=== PATIENT | male | born 1945 | race Caucasian/White ===

== ENCOUNTER → 2017-03-02 07:57 | Outpatient (POV) | payer MEDICARE, OTHER, SELFPAY ==
[2017-03-02] VITALS (19 sets, daily range): BP systolic 128–173; BP diastolic 60–82; PULSE 50–68; RESP 18–20; TEMP 36.1–36.8; O2SAT 97–98; BMI 30.2
[2017-03-02 09:56] LABS: Basophils % 0.6 % (0.1-2.0); Eosinophils # 0.1 K/mm3 (0.0-0.4); Eosinophils % 1.1 % (0.1-12.0); Hematocrit 26.7 % (42.0-52.0); Lymphocytes # 1.1 K/mm3 (0.7-4.5); Mean Corpuscular HGB Conc 27.8 g/dL (31.8-35.4); Mean Corpuscular Hemoglobin 19.8 pg (27.0-31.2); Mean Corpuscular Volume 71.2 fl (80-94); Mean Platelet Volume 8.5 fl (7.4-10.4); Monocytes # 0.4 K/mm3 (0.1-1.0); Monocytes % 5.8 % (1.7-9.3); Neutrophils # 5.1 K/mm3 (1.8-7.8); Neutrophils % 76.5 % (37.0-80.0); Platelet Count 203 K/mm3 (142-424); Red Blood Count 3.76 M/mm3 (4.60-6.20); White Blood Count 6.6 K/mm3 (4.8-10.8)
[2017-03-02 10:12] LABS: Hemoglobin 7.4 g/dL (14.1-18.0)
[2017-03-02 11:06] LABS: Alanine Aminotransferase 12 U/L (12-78); Albumin Level 3.6 gm/dL (3.4-5.0); Albumin/Globulin Ratio 1.4 (1.1-1.8); Alkaline Phosphatase 86 U/L (46-116); Anion Gap 13.4 mEq/L (5-15); Aspartate Amino Transferase 16 U/L (15-37); Bilirubin,Total 0.4 mg/dL (0.2-1.0); Blood Urea Nitrogen 19 mg/dL (7-18); Calcium 8.5 mg/dL (8.5-10.1); Carbon Dioxide 25 mmol/L (21.0-32.0); Chloride 107 mmol/L (98-107); Creatinine,Serum 1.17 mg/dL (0.70-1.30); Estimated Glomerular Filt Rate 62 ml/min (>60); Ferritin 5 ng/mL (8-388); GFR (African American) 75 ML/MIN (>60); Globulin 2.6 gm/dl (1.3-3.2); Glucose 97 mg/dL (74-106); Potassium 4.4 mmoL/L (3.5-5.1); Sodium 141 mmol/L (136-145); Total Protein,Serum 6.2 gm/dL (6.4-8.2)
--- NOTE | 2017-03-02 18:17 | PC.NURSE ---
WATCHING PATIENT FOR ONE HOUR FOR 1 HOUR POST H&H AND VITAL SIGNS, BLOOD PRESSURE ELEVATED AT 173/82, PATIENT STATES HE HAS NOT HAD HIS BLOOD PRESSURE MEDS TODAY. WILL CONTINUE TO MONITOR.
[2017-03-02 18:18] LABS: Hematocrit 30.5 % (42.0-52.0)
[2017-03-02 18:44] LABS: Hemoglobin 8.9 g/dL (14.1-18.0)
[2017-03-03 09:22] LABS: Iron 13 ug/dL (38-169); Iron Saturation 4 % (15-55); UIBC 353 ug/dL (111-343)
[2017-03-03 13:38] LABS: Vitamin B12 427 pg/mL (232-1245)
[2017-03-06 18:22] LABS: H. pylori Breath Test Negative (Negative)
== END ==
LOC: SC 10:52 → INF 12:58
PROVIDERS: Visit Provider Nurse Practitioner Acute Care
DX: D64.9 Anemia, unspecified (principal); R06.02 Shortness of breath
CPT/HCPCS: 36415; 36430; 80053; 82607; 82728; 83550; 85014; 85018; 85025; 86850; P9016

== ENCOUNTER → 2017-03-04 08:00 | Outpatient (CLI) | payer MEDICARE, OTHER, SELFPAY ==
[2017-03-09 13:42] LABS: Occult Blood,Stool Positive (Negative)
== END ==
PROVIDERS: Visit Provider Nurse Practitioner Acute Care
DX: D50.0 Iron deficiency anemia secondary to blood loss (chronic) (principal)
CPT/HCPCS: 82272; G0328

== ENCOUNTER → 2017-03-05 15:36 | Outpatient (CLI) | payer MEDICARE, OTHER, SELFPAY ==
[2017-03-09 13:42] LABS: Occult Blood,Stool Positive (Negative)
== END ==
PROVIDERS: Visit Provider Nurse Practitioner Acute Care
DX: D50.0 Iron deficiency anemia secondary to blood loss (chronic) (principal)
CPT/HCPCS: 82272; G0328

== ENCOUNTER → 2017-03-06 15:30 | Outpatient (CLI) | payer MEDICARE, OTHER, SELFPAY ==
[2017-03-09 13:41] LABS: Occult Blood,Stool Positive (Negative)
== END ==
PROVIDERS: Family Provider Internal Medicine Adolescent Medicine; Visit Provider Nurse Practitioner Acute Care
DX: D50.0 Iron deficiency anemia secondary to blood loss (chronic) (principal)
CPT/HCPCS: 82272; G0328

== ENCOUNTER → 2017-03-16 09:17 | Outpatient (POV) | payer OTHER, MEDICARE, SELFPAY | PROVIDERS: Visit Provider Nurse Practitioner Acute Care | DX: Z00.00 Encounter for general adult medical examination without abnormal findings (principal) ==

== ENCOUNTER → 2017-04-03 15:17 | Outpatient (CLI) | payer MEDICARE, OTHER, SELFPAY ==
[2017-04-03 15:32] LABS: Basophils # 0.1 K/mm3 (0-0.2); Basophils % 0.7 % (0.1-2.0); Eosinophils # 0.1 K/mm3 (0.0-0.4); Eosinophils % 1.7 % (0.1-12.0); Hematocrit 29.5 % (42.0-52.0); Hemoglobin 8.1 g/dL (14.1-18.0); Lymphocytes # 1.8 K/mm3 (0.7-4.5); Lymphocytes % 22.7 K/mm3 (10-50); Mean Corpuscular HGB Conc 27.4 g/dL (31.8-35.4); Mean Corpuscular Hemoglobin 19.3 pg (27.0-31.2); Mean Corpuscular Volume 70.4 fl (80-94); Mean Platelet Volume 8.7 fl (7.4-10.4); Monocytes # 0.5 K/mm3 (0.1-1.0); Monocytes % 6.7 % (1.7-9.3); Neutrophils # 5.4 K/mm3 (1.8-7.8); Neutrophils % 68.1 % (37.0-80.0); Platelet Count 281 K/mm3 (142-424); White Blood Count 7.9 K/mm3 (4.8-10.8)
[2017-04-03 18:26] LABS: Anion Gap 13.8 mEq/L (5-15); Blood Urea Nitrogen 19 mg/dL (7-18); Carbon Dioxide 26 mmol/L (21.0-32.0); Chloride 106 mmol/L (98-107); Creatinine,Serum 1.24 mg/dL (0.70-1.30); Estimated Glomerular Filt Rate 58 ml/min (>60); GFR (African American) 70 ML/MIN (>60); Glucose 96 mg/dL (74-106); Potassium 4.8 mmoL/L (3.5-5.1); Sodium 141 mmol/L (136-145)
== END ==
PROVIDERS: PCP Internal Medicine Adolescent Medicine; Visit Provider Internal Medicine Adolescent Medicine
DX: D50.0 Iron deficiency anemia secondary to blood loss (chronic) (principal)
CPT/HCPCS: 36415; 80048; 85025

== ENCOUNTER → 2017-04-20 11:14 | Outpatient (CLI) | payer MEDICARE, OTHER, SELFPAY ==
[2017-04-20] VITALS (20 sets, daily range): BP systolic 99–140; BP diastolic 50–77; PULSE 48–99; RESP 16–20; TEMP 36.4–36.8; O2SAT 51–100; BMI 29.7
[2017-04-20 11:39] LABS: Basophils % 0.5 % (0.1-2.0); Eosinophils # 0.1 K/mm3 (0.0-0.4); Eosinophils % 1.5 % (0.1-12.0); Hematocrit 27.3 % (42.0-52.0); Lymphocytes # 1.6 K/mm3 (0.7-4.5); Lymphocytes % 21.1 K/mm3 (10-50); Mean Corpuscular HGB Conc 26.7 g/dL (31.8-35.4); Mean Corpuscular Hemoglobin 18.8 pg (27.0-31.2); Mean Corpuscular Volume 70.3 fl (80-94); Mean Platelet Volume 8.8 fl (7.4-10.4); Monocytes # 0.6 K/mm3 (0.1-1.0); Monocytes % 7.6 % (1.7-9.3); Neutrophils # 5.1 K/mm3 (1.8-7.8); Neutrophils % 69.2 % (37.0-80.0); Platelet Count 228 K/mm3 (142-424); Red Blood Count 3.88 M/mm3 (4.60-6.20); Red Cell Distribution Width 18.6 % (11.5-17.5); White Blood Count 7.4 K/mm3 (4.8-10.8)
[2017-04-20 11:41] LABS: Hemoglobin 7.3 g/dL (14.1-18.0)
[2017-04-20 11:42] LABS: INR 1.37 (0.9-1.1); Prothrombin Time 14.9 seconds (9.4-11.8)
[2017-04-20 11:57] LABS: Prostate Specific Ag Screen 16.9 ng/mL (0.0-4.0); Thyroid Stimulating Hormone 5.95 uIU/ml (0.358-3.740); Uric Acid 11.7 mg/dL (2.6-7.2)
[2017-04-20 12:47] LABS: Erythrocyte Sedimentation Rate 18 mm/hr (0-20)
--- NOTE | 2017-04-20 17:06 | PC.NURSE ---
REPORT CALLED TO SECOND FLOOR, GAYATRI GALLAGHER ASSUMING CARE. PT TRANSFERRED TO 2ND FLOOR, RM 217 TO FINISH BLOOD TRANSFUSION PER WC. PT SETTLED IN ROOM WITH AT BS. PT DENIED NEEDING ANYTHING FOR DINNER.
[2017-04-20 19:39] LABS: Hematocrit 28.9 % (42.0-52.0)
[2017-04-20 20:06] LABS: Hemoglobin 8.2 g/dL (14.1-18.0)
== END ==
PROVIDERS: PCP Internal Medicine Adolescent Medicine; Visit Provider Internal Medicine Adolescent Medicine
DX: D50.0 Iron deficiency anemia secondary to blood loss (chronic) (principal); R97.20 Elevated prostate specific antigen [PSA]; I35.9 Nonrheumatic aortic valve disorder, unspecified; M10.9 Gout, unspecified; I25.10 Atherosclerotic heart disease of native coronary artery without angina pectoris; R53.83 Other fatigue; Z12.5 Encounter for screening for malignant neoplasm of prostate
CPT/HCPCS: 36415; 36430; 84443; 84550; 85014; 85018; 85025; 85610; 85651; 86850; G0103; P9016

== ENCOUNTER → 2017-05-25 14:21 | Outpatient (CLI) | payer MEDICARE, OTHER, SELFPAY ==
[2017-05-25 14:35] LABS: Basophils # 0.1 K/mm3 (0-0.2); Basophils % 0.8 % (0.1-2.0); Eosinophils # 0.2 K/mm3 (0.0-0.4); Eosinophils % 2.3 % (0.1-12.0); Hematocrit 41.1 % (42.0-52.0); Hemoglobin 11.3 g/dL (14.1-18.0); Lymphocytes # 2.1 K/mm3 (0.7-4.5); Lymphocytes % 27.9 K/mm3 (10-50); Mean Corpuscular HGB Conc 27.6 g/dL (31.8-35.4); Mean Corpuscular Volume 79.6 fl (80-94); Mean Platelet Volume 7.7 fl (7.4-10.4); Monocytes # 0.5 K/mm3 (0.1-1.0); Monocytes % 6.8 % (1.7-9.3); Neutrophils # 4.6 K/mm3 (1.8-7.8); Neutrophils % 62.3 % (37.0-80.0); Platelet Count 267 K/mm3 (142-424); Red Blood Count 5.16 M/mm3 (4.60-6.20); Red Cell Distribution Width 21.2 % (11.5-17.5); White Blood Count 7.4 K/mm3 (4.8-10.8)
[2017-05-25 15:48] LABS: Alanine Aminotransferase 17 U/L (12-78); Albumin Level 3.5 gm/dL (3.4-5.0); Albumin/Globulin Ratio 1.2 (1.1-1.8); Alkaline Phosphatase 99 U/L (46-116); Anion Gap 14.1 mEq/L (5-15); Aspartate Amino Transferase 20 U/L (15-37); Bilirubin,Total 0.3 mg/dL (0.2-1.0); Blood Urea Nitrogen 15 mg/dL (7-18); Calcium 8.9 mg/dL (8.5-10.1); Carbon Dioxide 26 mmol/L (21.0-32.0); Chloride 106 mmol/L (98-107); Creatinine,Serum 1.11 mg/dL (0.70-1.30); Estimated Glomerular Filt Rate 65 ml/min (>60); GFR (African American) 79 ML/MIN (>60); Globulin 2.9 gm/dl (1.3-3.2); Glucose 109 mg/dL (74-106); Potassium 4.1 mmoL/L (3.5-5.1); Sodium 142 mmol/L (136-145); Total Protein,Serum 6.4 gm/dL (6.4-8.2); Uric Acid 9.2 mg/dL (2.6-7.2)
== END ==
PROVIDERS: Visit Provider Internal Medicine Adolescent Medicine
DX: I35.9 Nonrheumatic aortic valve disorder, unspecified (principal); M10.9 Gout, unspecified
CPT/HCPCS: 36415; 80053; 84550; 85025

== ENCOUNTER → 2017-07-27 09:40 | Outpatient (CLI) | payer MEDICARE, OTHER, SELFPAY ==
[2017-07-27 10:12] LABS: Basophils % 0.7 % (0.1-2.0); Eosinophils # 0.1 K/mm3 (0.0-0.4); Eosinophils % 1.9 % (0.1-12.0); Hematocrit 45.5 % (42.0-52.0); Hemoglobin 13.2 g/dL (14.1-18.0); Lymphocytes # 1.4 K/mm3 (0.7-4.5); Lymphocytes % 24.1 K/mm3 (10-50); Mean Corpuscular HGB Conc 29.1 g/dL (31.8-35.4); Mean Corpuscular Hemoglobin 24.5 pg (27.0-31.2); Mean Corpuscular Volume 84.2 fl (80-94); Mean Platelet Volume 7.6 fl (7.4-10.4); Monocytes # 0.4 K/mm3 (0.1-1.0); Monocytes % 6.3 % (1.7-9.3); Neutrophils # 3.9 K/mm3 (1.8-7.8); Neutrophils % 67.1 % (37.0-80.0); Platelet Count 203 K/mm3 (142-424); Red Blood Count 5.41 M/mm3 (4.60-6.20); Red Cell Distribution Width 17.3 % (11.5-17.5); White Blood Count 5.9 K/mm3 (4.8-10.8)
[2017-07-27 10:16] LABS: INR 2.97 (0.9-1.1); Prothrombin Time 29.6 seconds (9.4-11.8)
[2017-07-27 12:59] LABS: Alanine Aminotransferase 21 U/L (12-78); Albumin Level 3.3 gm/dL (3.4-5.0); Albumin/Globulin Ratio 1.2 (1.1-1.8); Alkaline Phosphatase 129 U/L (46-116); Anion Gap 15.9 mEq/L (5-15); Aspartate Amino Transferase 20 U/L (15-37); Bilirubin,Total 0.3 mg/dL (0.2-1.0); Blood Urea Nitrogen 15 mg/dL (7-18); Calcium 9.3 mg/dL (8.5-10.1); Carbon Dioxide 26 mmol/L (21.0-32.0); Chloride 103 mmol/L (98-107); Chol/HDL Ratio 4.9 (1-3.5); Cholesterol 190 mg/dL (140-200); Creatinine,Serum 1.02 mg/dL (0.70-1.30); Estimated Glomerular Filt Rate 72 ml/min (>60); GFR (African American) 87 ML/MIN (>60); Globulin 2.8 gm/dl (1.3-3.2); Glucose 134 mg/dL (74-106); HDL Cholesterol 39 mg/dL (27-67); LDL Cholesterol 115 mg/dL (0-130); Potassium 4.9 mmoL/L (3.5-5.1); Sodium 140 mmol/L (136-145); Total Protein,Serum 6.1 gm/dL (6.4-8.2); Triglycerides 178 mg/dL (30-200); Uric Acid 4.3 mg/dL (2.6-7.2); VLDL Cholesterol 36 mg/dL (0-40)
== END ==
PROVIDERS: Visit Provider Internal Medicine Adolescent Medicine
DX: I25.10 Atherosclerotic heart disease of native coronary artery without angina pectoris (principal); M10.9 Gout, unspecified; D50.0 Iron deficiency anemia secondary to blood loss (chronic); I35.9 Nonrheumatic aortic valve disorder, unspecified
CPT/HCPCS: 36415; 80053; 80061; 84550; 85025; 85610

== ENCOUNTER 2017-08-22 16:02 | Inpatient (IN) ==
--- NOTE | 2017-08-22 16:26 | Emergency Department Note ---
ED Disposition Clinical Impression: GI bleeding, Anticoagulated on Coumadin, Metallic aortic valve replacement during current hospitalization Disposition: Still a Patient Condition on Discharge: Fair Instructions: DI for Gastrointestinal Bleeding - Critical Care Critical Care Time: No Attestation: On , the high probability of a clinically significant, sudden or life threatening deterioration of the following system(s) required my full and direct attention, intervention and personal management. The time I documented below is in addition to time spent performing reported procedures but includes the following listed in this critical care notation. Medical Decision Making - Gio Inquiry Pt receiving controlled substance: No Gio was queried for this patient: No Vital Signs: 08/22/17 16:08 08/22/17 17:03 Temperature 97.9 F Temperature Source Oral Pulse Rate [Right Radial] 79 Respiratory Rate 20 Blood Pressure [Right Arm] 180/97 138/76 Blood Pressure Mean [Right Arm] 124 96 Blood Pressure Source [Right Arm] Automatic Cuff Manual Cuff/ Auscultation Blood Pressure Position [Right Arm] Sitting Sitting 02 Sat by Pulse Oximetry 98 Oxygen Delivery Method Room Air - Lab Data Lab Results 08/22/17 16:30: Stool Occult Blood Positive A 08/22/17 16:30: WBC 9.2, RBC 4.44 L, Hgb 11.4 L, Hct 37.9 L, MCV 85.4, MCH 25.6 L, MCHC 30.0 L, RDW 17.2, Plt Count 254, MPV 7.4, Neut % (Auto) 85.7 H, Lymph % (Auto) 10.2, [place] % (Auto) 3.6, Eos % (Auto) 0.2, Baso % (Auto) 0.3, Neut # ( Auto) 7.9 H, Lymph # (Auto) 0.9, [place] # (Auto) 0.3, Eos # (Auto) 0.0, Baso # ( Auto) 0.0 08/22/17 16:30: PT 24.8 H, INR 2.47 H, APTT 42.2 H 08/22/17 16:30: Sodium 141, Potassium 4.2, Chloride 109 H, Carbon Dioxide 26, Anion Gap 10.2, BUN 19 H, Creatinine 1.08, Estimated Creat Clear 76, Estimated GFR 68, Est GFR ( Amer) 82, Glucose 141 H, Calcium 9.1, Total Bilirubin 0.4, AST 15, ALT 19, Alkaline Phosphatase 129 H, Total Protein 7.1, Albumin 3.4 , Globulin 3.7 H, Albumin/Globulin Ratio 0.9 L 08/22/17 16:41: Blood Type A Positive Result diagrams: 08/22/17 16:30 08/22/17 16:30 Orders (Tests/Meds): ED MEDICATIONS Generic Name Dose Route Start Last Admin Trade Name Freq PRN Reason Stop Dose Admin Sodium Chloride 1,000 mls @ 999 mls/hr 08/22/17 16:30 08/22/17 16:47 Sod Chlor 0.9% 1000ml Bag IV 08/22/17 17:30 999 mls/hr .Q1H1M CHEN Administration Pantoprazole Sodium 80 mg/ 100 mls @ 10 mls/hr 08/22/17 16:30 08/22/17 16:54 Sodium Chloride IV 08/25/17 16:29 10 mls/hr .Q10H CHEN Administration Discontinued Medications Generic Name Dose Route Start Last Admin Trade Name Freq PRN Reason Stop Dose Admin Famotidine 20 mg 08/22/17 16:29 08/22/17 16:47 Pepcid 20mg/2ml Vial IV 08/22/17 16:30 20 mg ONCE ONE Administration Ondansetron HCl 4 mg 08/22/17 16:34 08/22/17 16:42 Zofran 4mg/2ml Vial IV 08/22/17 16:35 4 mg ONCE ONE Administration Pantoprazole Sodium 40 mg 08/22/17 16:29 08/22/17 16:47 Protonix 40mg Vial IV 08/22/17 16:30 40 mg ONCE ONE Administration Sodium Chloride 8 ml 08/22/17 16:29 08/22/17 16:47 Saline Flush 10ml Syringe IV 08/22/17 16:30 8 ml ONCE ONE Administration ORDERS Category Date Time Status Type and Screen Stat BBK 08/22/17 16:41 Results Complete Blood Count Auto Diff Stat Lab 08/22/17 16:30 Results Medical Decision Narrative: The patient was orthostatic negative his hemoglobin was 11 he wanted to be admitted at [facility] on the Dr. Henderson service. [address] Henderson he did not answer so I spoke with Dr. Landa was experimental electronics developer for Dr. Henderson and he accepted admission on behalf of Dr. Covarrubias. Patient is a positive in the blood bank has his blood type. GI Bleed HPI - General Chief complaint: GI Bleed Stated complaint: vomiting blood,blood in stools Time Seen by Provider: 08/22/17 16:10 Mode of Arrival: Ambulatory Limitations: No Limitations Description of Symptoms (Recalled from ER Triage Doc. by RN): Patient endorsing abdominal pain since yesterday evening and vomiting "something red, either a slim nicol or blood." Patient also states he had several bowel movements with dark blood. - History of Present Illness HPI Narrative: 9 years old white male with multiple medical problems including coronary artery disease aortic valve replacement 2001 on Coumadin therapy his most recent INR was three-point. The patient has a past medical history of peptic ulcer disease and GI bleeding that required blood transfusion. Today while working he developed abdominal discomfort had to lie down vomited blood 3 and the last episode was coffee-ground emesis. He had abnormal bowel movement since yesterday. He denies lightheaded dizziness but he feels nauseous and weak. Onset (ago): hour(s) (Started of 8 hours ago) Consistency: intermittent Severity: moderate Relieving factors: none Exacerbating factors: none Context: history of GI bleed, anticoagulant use Associated symptoms: nausea, malaise Treatments Prior to Arrival: none - Related Data Home Medications Medication Instructions Recorded Confirmed allopurinol 300 mg tablet 300 mg PO .QDAY tab 03/12/17 08/22/17 aspirin 81 mg tablet,delayed 81 mg PO .QDAY tab 03/12/17 08/22/17 release colchicine 0.6 mg capsule 0.6 mg PO .QDAY PRN cap 03/12/17 08/22/17 hydrocodone 7.5 mg-acetaminophen 1 tab PO Q6H 03/12/17 08/22/17 325 mg tablet lisinopril 20 mg tablet 20 mg PO .QDAY tab 03/12/17 08/22/17 omeprazole 20 mg capsule,delayed 20 mg PO DAILY 03/12/17 08/22/17 release warfarin 5 mg tablet 5 mg PO DAILY 03/12/17 08/22/17 Allergies Allergy/AdvReac Type Severity Reaction Status Date / Time No Known Allergies Allergy Verified 08/22/17 16:21 [facility] History I have reviewed the patient's past medical history: Yes (Complex PMH, I reviewed his medication) Medical History: Reports:: Hyperlipidemia, Hypertension, Ulcer Other Medical History: Reports: Anemia, Arthritis, Other Laterality Cases: Bilateral: Arthroscopy Shoulder Other Surgeries: Yes: Other Amputation: No Fractures: No - Social History Smoking Status: Never smoker Alcohol Intake: never Alcohol Intake Frequency:: holidays/special occasions only Substance Use Type: denies use Occupational Status: retired - Psychiatric History Expresses thoughts of harming self/others: None Suicide Plan Description: No Plan Family Hx:: No significant family history ROS Obtained: Yes All systems reviewed & no additional complaints Physical Exam - General General appearance: alert, in no apparent distress - Head Head exam: atraumatic, normocephalic, normal inspection - Eye Eye exam: Present: normal appearance, PERRL, EOMI - ENT ENT exam: Present: normal exam, normal oropharynx, mucous membranes moist, TM's normal bilaterally, normal external ear exam - Neck Neck exam: Present: normal inspection, full ROM, trachea midline. Absent: tenderness, meningismus, lymphadenopathy - Chest Chest inspection: Present: normal inspection, symmetric chest wall rise. Absent : tenderness - Respiratory Respiratory exam: Present: normal lung sounds bilaterally. Absent: respiratory distress - Cardiovascular Cardiovascular exam: Present: regular rate, normal rhythm. Absent: JVD - Abdominal Exam Abdominal exam: Present: soft, normal bowel sounds. Absent: distention, tenderness, guarding, rebound, rigidity - Rectal Exam Rectal exam: Present: normal rectal tone, heme (+) stool, other (Maroon blood by rectal examination. ) - Extremities Exam Extremities exam: Present: normal inspection, full ROM, normal capillary refill. Absent: tenderness, calf tenderness - Back Exam Back exam: Present: normal inspection. Absent: tenderness - Neurological Exam Neurological exam: Present: alert, oriented X3 - Psychiatric Psychiatric exam: Present: normal affect, normal mood - Skin Skin exam: Present: warm, dry, intact, normal color - Lymphatic Lymphatic Findings: no adenopathy
[2017-08-22 16:58] LABS: Basophils % 0.3 % (0.1-2.0); Eosinophils % 0.2 % (0.1-12.0); Hematocrit 37.9 % (42.0-52.0); Hemoglobin 11.4 g/dL (14.1-18.0); Lymphocytes # 0.9 K/mm3 (0.7-4.5); Lymphocytes % 10.2 K/mm3 (10-50); Mean Corpuscular Hemoglobin 25.6 pg (27.0-31.2); Mean Corpuscular Volume 85.4 fl (80-94); Mean Platelet Volume 7.4 fl (7.4-10.4); Monocytes # 0.3 K/mm3 (0.1-1.0); Monocytes % 3.6 % (1.7-9.3); Neutrophils # 7.9 K/mm3 (1.8-7.8); Neutrophils % 85.7 % (37.0-80.0); Platelet Count 254 K/mm3 (142-424); Red Blood Count 4.44 M/mm3 (4.60-6.20); Red Cell Distribution Width 17.2 % (11.5-17.5); White Blood Count 9.2 K/mm3 (4.8-10.8)
[2017-08-22 17:00] LABS: Albumin Level 3.4 gm/dL (3.4-5.0); Albumin/Globulin Ratio 0.9 (1.1-1.8); Anion Gap 10.2 mEq/L (5-15); Bilirubin,Total 0.4 mg/dL (0.2-1.0); Calcium 9.1 mg/dL (8.5-10.1); Globulin 3.7 gm/dl (1.3-3.2); INR 2.47 (0.9-1.1); Potassium 4.2 mmoL/L (3.5-5.1); Prothrombin Time 24.8 seconds (9.4-11.8); Total Protein,Serum 7.1 gm/dL (6.4-8.2)
[2017-08-22 17:07] LABS: Activated Partial Thrombo Time 42.2 seconds (23.6-34.0)
[2017-08-22 17:27] LABS: Lymphocytes % 7 % (10-50); Monocytes % 3 % (2-9); Neutrophils % 90 % (42-76); RBC Morphology Normal; Total Cells Counted 100
--- NOTE | 2017-08-22 18:14 | History & Physical Report ---
*Admission Date: 08/22/17 *Chief complaint: Abdominal pain/upper GI bleeding *History of present illness: 72-year-old white male with history of warfarin therapy secondary to metallic aortic valve with good compliance at home and anticoagulated status over the last several years. He had an episode over the past year of some chronic blood loss, evaluated by Dr. Beckford with significant workup, including EGD, colonoscopies and capsule endoscopies that did not show significant pathology, and the diagnosis of AVM with intermittent bleeding was entertained. Regardless, patient improved with iron therapy has been stable over the past several months. This morning patient felt poorly, abdominal complaints have been noted, and he vomited a small amount of blood and came to the emergency department. Abdominal tenderness was noted, INR was therapeutic and hemoglobin was fairly stable but given patient's evidence of bleeding and abdominal pain he is admitted to hospital for serial laboratory studies. [facility] History I have reviewed the patient's past medical history: Yes Medical History: Reports:: Coronary Artery Disease, Hyperlipidemia, Hypertension , Ulcer, Valvular Heart Disease (Metallic aortic valve, on long-term Coumadin) Other Medical History: Reports: Anemia, Arthritis, Other Laterality Cases: Bilateral: Arthroscopy Shoulder Other Surgeries: Yes: Other Amputation: No Fractures: No - *Social History Smoking Status: Never smoker Alcohol Intake: never Alcohol Intake Frequency:: holidays/special occasions only Substance Use Type: denies use Occupational Status: retired - Psychiatric History Expresses thoughts of harming self/others: None Suicide Plan Description: No Plan *Family Hx:: No significant family history Review of Systems - Review of Systems Review of systems:: pertinent systems reviewed and negative unless documented below - Constitutional Denies anorexia, Denies body ache(s), Denies chills - Eyes Denies blind spots, Denies blurry vision - ENT Denies abnormal hearing, Denies bleeding gums - *Cardiovascular Reports shortness of breath, Reports shortness of breath with activity, Denies chest pain, Denies chest pain at rest - *Respiratory Denies change in phlegm color, Denies chest congestion, Denies cough, Denies shortness of breath - *Gastrointestinal Reports abdominal pain, Reports change in stools, Reports loose stools, Reports heartburn, Reports vomiting blood, Denies coffee ground vomit, Denies bright, red blood in stools - *Genitourinary Denies difficulty urinating - *Musculoskeletal Reports joint pain, Reports joint swelling, Reports limited joint movement Comments: 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 Meds Home Medications Medication Instructions Recorded Confirmed Type allopurinol 300 mg tablet 300 mg PO .QDAY tab 03/12/17 08/22/17 History aspirin 81 mg tablet,delayed 81 mg PO .QDAY tab 03/12/17 08/22/17 History release colchicine 0.6 mg capsule 0.6 mg PO .QDAY PRN cap 03/12/17 08/22/17 History hydrocodone 7.5 mg-acetaminophen 1 tab PO Q6H 03/12/17 08/22/17 History 325 mg tablet lisinopril 20 mg tablet 20 mg PO .QDAY tab 03/12/17 08/22/17 History omeprazole 20 mg capsule,delayed 20 mg PO DAILY 03/12/17 08/22/17 History release warfarin 5 mg tablet 5 mg PO DAILY 03/12/17 08/22/17 History Allergies Allergy/AdvReac Type Severity Reaction Status Date / Time No Known Allergies Allergy Verified 08/22/17 16:21 Exam Vital signs and Labs for Last 24 Hours: Temp Pulse Resp BP Pulse Ox 97.9 F 71 20 130/78 98 08/22/17 16:08 08/22/17 17:26 08/22/17 16:08 08/22/17 17:26 08/22/17 16:08 Laboratory Results - last 24 hr 08/22/17 16:30: Stool Occult Blood Positive A 08/22/17 16:30: WBC 9.2, RBC 4.44 L, Hgb 11.4 L, Hct 37.9 L, MCV 85.4, MCH 25.6 L, MCHC 30.0 L, RDW 17.2, Plt Count 254, MPV 7.4, Neut % (Auto) 85.7 H, Lymph % (Auto) 10.2, [place] % (Auto) 3.6, Eos % (Auto) 0.2, Baso % (Auto) 0.3, Neut # ( Auto) 7.9 H, Lymph # (Auto) 0.9, [place] # (Auto) 0.3, Eos # (Auto) 0.0, Baso # ( Auto) 0.0, Total Counted 100, Neutrophils % (Manual) 90 H, Lymphocytes % (Manual ) 7 L, Monocytes % (Manual) 3, Platelet Estimate Normal, RBC Morphology Normal 08/22/17 16:30: PT 24.8 H, INR 2.47 H, APTT 42.2 H 08/22/17 16:30: Sodium 141, Potassium 4.2, Chloride 109 H, Carbon Dioxide 26, Anion Gap 10.2, BUN 19 H, Creatinine 1.08, Estimated Creat Clear 76, Estimated GFR 68, Est GFR ( Amer) 82, Glucose 141 H, Calcium 9.1, Total Bilirubin 0.4, AST 15, ALT 19, Alkaline Phosphatase 129 H, Total Protein 7.1, Albumin 3.4 , Globulin 3.7 H, Albumin/Globulin Ratio 0.9 L 08/22/17 16:30: Acetaminophen 0 L 08/22/17 16:41: Blood Type A Positive I & O for Last 24 hours: Intake & Output 08/20/17 08/21/17 08/22/17 08/23/17 11:59 11:59 11:59 11:59 Weight 185 lb Narrative: Patient is alert, pleasant, normal skin color noted, no scleral icterus or jaundice. Lungs are clear in the anterior and posterior kramer. Metallic heart valve is crisp and typical for his exam. No edema noted. Significant osteoarthritic changes of his hands as previously noted. Abdomen is soft, normal bowel sounds, tenderness in both lower quadrants, no rebound or guarding. Neurologically intact. Oriented, pleasant and alert 3. H&P: Result - Labs Labs: Short CBC 08/22/17 Range/Units 16:30 WBC 9.2 (4.8-10.8) K/mm3 Hgb 11.4 L (14.1-18.0) g/dL Hct 37.9 L (42.0-52.0) % Plt Count 254 (142-424) K/mm3 BMP 08/22/17 16:30 Sodium 141 Potassium 4.2 Chloride 109 H Carbon Dioxide 26 BUN 19 H Creatinine 1.08 Glucose 141 H Calcium 9.1 Liver Function 08/22/17 Range/Units 16:30 Total Bilirubin 0.4 (0.2-1.0) mg/dL AST 15 (15-37) U/L ALT 19 (12-78) U/L Alkaline Phosphatase 129 H (46-116) U/L Albumin 3.4 (3.4-5.0) gm/dL Assessment and Plan (1) Anticoagulated on Coumadin Current visit: Yes Status: Acute Category: Medical Code(s): Z51.81 - Encounter for therapeutic drug level monitoring; 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 Check INR tomorrow morning. (2) GI bleeding Current visit: Yes Status: Acute Category: Medical Code(s): K92.2 - Gastrointestinal hemorrhage, unspecified Given his pain and overall symptoms that have occurred over the past [address] scan of abdomen and pelvis tonight. Surgical consultation in case he begins to bleed more acutely over the weekend. He normally has seen Dr. Beckford in GI. We will have him involved on Thursday. Patient is currently hemodynamically stable. Close observation on the hospital floor.
[2017-08-23 06:17] LABS: Basophils # 0.1 K/mm3 (0-0.2); Basophils % 0.9 % (0.1-2.0); Eosinophils # 0.1 K/mm3 (0.0-0.4); Eosinophils % 1.4 % (0.1-12.0); Hematocrit 32.9 % (42.0-52.0); Lymphocytes # 1.6 K/mm3 (0.7-4.5); Lymphocytes % 23.1 K/mm3 (10-50); Mean Corpuscular Hemoglobin 25.3 pg (27.0-31.2); Mean Corpuscular Volume 87.2 fl (80-94); Mean Platelet Volume 7.4 fl (7.4-10.4); Monocytes # 0.6 K/mm3 (0.1-1.0); Monocytes % 7.7 % (1.7-9.3); Neutrophils # 4.7 K/mm3 (1.8-7.8); Neutrophils % 66.7 % (37.0-80.0); Platelet Count 221 K/mm3 (142-424); Red Blood Count 3.77 M/mm3 (4.60-6.20); Red Cell Distribution Width 17.2 % (11.5-17.5); White Blood Count 7.1 K/mm3 (4.8-10.8)
[2017-08-23 06:23] LABS: INR 2.88 (0.9-1.1); Prothrombin Time 28.8 seconds (9.4-11.8)
[2017-08-23 06:25] LABS: Anion Gap 6.9 mEq/L (5-15); Calcium 8.4 mg/dL (8.5-10.1); Potassium 4.9 mmoL/L (3.5-5.1)
[2017-08-23 06:33] LABS: Hemoglobin 9.5 g/dL (14.1-18.0)
[2017-08-23 08:28] LABS: Hematocrit 31.9 % (42.0-52.0); Hemoglobin 9.8 g/dL (14.1-18.0)
--- NOTE | 2017-08-23 08:30 | Progress Note ---
Internal Medicine - PN: Subj *Date: 08/23/17 *Time: 08:26 Interval history: Patient feels hungry but otherwise notes that his upper epigastric pain is better. He has some lower abdominal pain that is more chronic in nature. Denies chest pain or shortness of air. Reports no vomiting. 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 Exam Vital signs and Labs for Last 24 Hours: Temp Pulse Resp BP Pulse Ox 97.6 F 63 18 139/73 98 08/23/17 07:27 08/23/17 07:27 08/23/17 07:27 08/23/17 07:27 08/23/17 07:27 Laboratory Results - last 24 hr 08/22/17 16:30: Stool Occult Blood Positive A 08/22/17 16:30: WBC 9.2, RBC 4.44 L, Hgb 11.4 L, Hct 37.9 L, MCV 85.4, MCH 25.6 L, MCHC 30.0 L, RDW 17.2, Plt Count 254, MPV 7.4, Neut % (Auto) 85.7 H, Lymph % (Auto) 10.2, [place] % (Auto) 3.6, Eos % (Auto) 0.2, Baso % (Auto) 0.3, Neut # ( Auto) 7.9 H, Lymph # (Auto) 0.9, [place] # (Auto) 0.3, Eos # (Auto) 0.0, Baso # ( Auto) 0.0, Total Counted 100, Neutrophils % (Manual) 90 H, Lymphocytes % (Manual ) 7 L, Monocytes % (Manual) 3, Platelet Estimate Normal, RBC Morphology Normal 08/22/17 16:30: PT 24.8 H, INR 2.47 H, APTT 42.2 H 08/22/17 16:30: Sodium 141, Potassium 4.2, Chloride 109 H, Carbon Dioxide 26, Anion Gap 10.2, BUN 19 H, Creatinine 1.08, Estimated Creat Clear 76, Estimated GFR 68, Est GFR ( Amer) 82, Glucose 141 H, Calcium 9.1, Total Bilirubin 0.4, AST 15, ALT 19, Alkaline Phosphatase 129 H, Total Protein 7.1, Albumin 3.4 , Globulin 3.7 H, Albumin/Globulin Ratio 0.9 L 08/22/17 16:30: Acetaminophen 0 L 08/22/17 16:41: Blood Type A Positive, Antibody Screen Negative 08/23/17 05:35: WBC 7.1, RBC 3.77 L, Hgb 9.5 L D, Hct 32.9 L, MCV 87.2, MCH 25.3 L, MCHC 29.0 L, RDW 17.2, Plt Count 221, MPV 7.4, Neut % (Auto) 66.7, Lymph % (Auto) 23.1, [place] % (Auto) 7.7, Eos % (Auto) 1.4, Baso % (Auto) 0.9, Neut # (Auto) 4.7, Lymph # (Auto) 1.6, [place] # (Auto) 0.6, Eos # (Auto) 0.1, Baso # (Auto) 0.1 08/23/17 05:35: PT 28.8 H, INR 2.88 H 08/23/17 05:35: Sodium 142, Potassium 4.9, Chloride 111 H, Carbon Dioxide 29, Anion Gap 6.9, BUN 19 H, Creatinine 1.09, Estimated Creat Clear 72, Estimated GFR 67, Est GFR ( Amer) 81, Glucose 94 D, Calcium 8.4 L I & O for Last 24 hours: Intake & Output 08/20/17 08/21/17 08/22/17 08/23/17 11:59 11:59 11:59 11:59 Intake Total 823 / 823 Output Total 500 / 500 Balance 323 / 323 Weight 177 lb 11.2 oz Narrative: Lungs are clear, metallic valve sound is crisp, no changes over baseline. Abdomen is soft, no significant tenderness on palpation. Patient is slightly more pale than yesterday. 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 anticipating surgery consult. Hemoglobin drop noted. Follow this again later, transfuse if indicated. Vitamin K given his high INR level this morning. May need to hold off on interventions/EGD until INR levels are better.
--- NOTE | 2017-08-23 08:35 | Pharmacy Consult Notes ---
[facility] Pharmacy VTE Monitoring - Patient Demographics Admission date: 08/22/17 Report Date: 08/23/17 Time: 08:35 Allergies/Adverse Reactions: Patient Allergies No Known Allergies Allergy (Verified 08/22/17 16:21) Height: 1.68 m Weight: 80.603 kg Patient Problems: Current Active Problems GI bleeding (Acute) Anticoagulated on Coumadin (Acute) Metallic aortic valve replacement during current hospitalization (Acute) - VTE Risk Labs: VTE Related Lab Results Hgb 9.8 g/dL (14.1-18.0) L 08/23/17 08:01 Hct 31.9 % (42.0-52.0) L 08/23/17 08:01 Plt Count 221 K/mm3 (142-424) 08/23/17 05:35 PT 28.8 seconds (9.4-11.8) H 08/23/17 05:35 INR 2.88 (0.9-1.1) H 08/23/17 05:35 APTT 42.2 seconds (23.6-34.0) H 08/22/17 16:30 BUN 19 mg/dL (7-18) H 08/23/17 05:35 Creatinine 1.09 mg/dL (0.70-1.30) 08/23/17 05:35 Estimated Creat Clear 72 mL/min (0-300) 08/23/17 05:35 Was VTE Risk Assessment Performed: Yes VTE Score: 2 VTE Risk Level: Low Risk - Prophylaxis VTE Prophylaxis Ordered?: Yes Types of VTE Prophylaxis: Pharmacological Pharmacologic Type: Enoxaparin - VTE Diagnosis Confirmed Treatment or plan recommended: Continue Current Treatment
--- NOTE | 2017-08-23 09:29 | Consult Report ---
*Admission Date: 08/22/17 *Chief complaint: Gastrointestinal bleeding *History of present illness: Patient is a 72-year-old white male with a history of mechanical valve replacement 18 years ago on chronic warfarin anticoagulation therapy. He does have a history of apparent peptic ulcer disease with bleeding ulcer required airlift to [facility]. More recently he has had findings of iron deficiency anemia. He had undergone upper endoscopy by Dr. Zion Beckford on 11/28/16. He was found to have gastritis and antritis. He was H. pylori positive and biopsies revealed some intestinal metaplasia. He did have a colonoscopy done on 01/05/[address] Zion Beckford and had several polyps removed which were tubular adenomas and was noted to have some diverticulosis and minimal hemorrhoids. He has had a couple of episodes of more appreciable anemia requiring transfusion over the past several months on [address] Beckford had him undergo capsule him to a endoscopy which was reportedly unremarkable for small bowel etiology. Patient states that a couple of days ago in the morning he felt somewhat ill. He was dizzy. He had some minor nausea. He did not go to work. His symptoms transiently improved and then yesterday he had some episodes of dark stool. He developed nausea and had some vomiting what he describes as brownish coffee ground like material. He presented to the emergency department where he was seen and evaluated and admitted for inpatient management for gastrointestinal bleeding. Review of Systems - Constitutional Reports weakness, Denies chills - Eyes Denies change in vision - ENT Denies abnormal hearing - *Cardiovascular Denies chest pain - *Respiratory Denies cough - *Gastrointestinal Reports abdominal pain, Reports change in stools, Reports black, tarry stools - *Genitourinary Reports blood in urine - *Musculoskeletal Reports joint pain - *Neurologic Denies abnormal hearing [facility] History Medical History: Reports:: Atrial Fibrillation, Cancer (bladder tumors), Congestive Heart Failure, Coronary Artery Disease, Hyperlipidemia, Hypertension , Myocardial Infarction, Ulcer, Valvular Heart Disease (Metallic aortic valve, on long-term Coumadin) Denies:: Diabetes Mellitus Type 1, Diabetes Mellitus Type 2, MRSA Other Medical History: Reports: Anemia, Arthritis, Cataracts, Other Laterality Cases: Right: Other, Bilateral: Arthroscopy Shoulder, Cataract, Tonsillectomy Other Surgeries: Yes: Colonoscopy, EGD, Hernia Repair, Other Amputation: No Fractures: Yes ((L) arm, (R) shoulder) - *Social History Smoking Status: Former smoker #Yrs smoked (if former smoker): 15 Smoking End Date: 1979 Alcohol Intake: current Alcohol Intake Frequency:: holidays/special occasions only Substance Use Type: denies use Occupational Status: retired Housing: house Household Members: spouse - Psychiatric History Expresses thoughts of harming self/others: None Suicide Plan Description: No Plan *Family Hx:: Cancer, Coronary Artery Disease, Diabetes, Heart Attack Meds Home Medications Medication Instructions Recorded Confirmed Type allopurinol 300 mg tablet 300 mg PO DAILY tab 03/12/17 08/23/17 History aspirin 81 mg tablet,delayed 81 mg PO DAILY tab 03/12/17 08/23/17 History release colchicine 0.6 mg capsule 0.6 mg PO DAILYP PRN cap 03/12/17 08/23/17 History hydrocodone 7.5 mg-acetaminophen 1 tab PO Q6H 03/12/17 08/22/17 History 325 mg tablet lisinopril 20 mg tablet 20 mg PO DAILY tab 03/12/17 08/23/17 History omeprazole 20 mg capsule,delayed 20 mg PO DAILY 03/12/17 08/22/17 History release warfarin 5 mg tablet 5 mg PO DAILY 03/12/17 08/22/17 History Montelukast Sodium [Singulair 10mg 10 mg PO PM 08/23/17 08/23/17 History tablet] Allergies Allergy/AdvReac Type Severity Reaction Status Date / Time No Known Allergies Allergy Verified 08/22/17 16:21 Exam Vital signs and Labs for Last 24 Hours: Temp Pulse Resp BP Pulse Ox 97.6 F 63 18 139/73 98 08/23/17 07:27 08/23/17 07:27 08/23/17 07:27 08/23/17 07:27 08/23/17 07:27 Laboratory Results - last 24 hr 08/22/17 16:30: Stool Occult Blood Positive A 08/22/17 16:30: WBC 9.2, RBC 4.44 L, Hgb 11.4 L, Hct 37.9 L, MCV 85.4, MCH 25.6 L, MCHC 30.0 L, RDW 17.2, Plt Count 254, MPV 7.4, Neut % (Auto) 85.7 H, Lymph % (Auto) 10.2, [place] % (Auto) 3.6, Eos % (Auto) 0.2, Baso % (Auto) 0.3, Neut # ( Auto) 7.9 H, Lymph # (Auto) 0.9, [place] # (Auto) 0.3, Eos # (Auto) 0.0, Baso # ( Auto) 0.0, Total Counted 100, Neutrophils % (Manual) 90 H, Lymphocytes % (Manual ) 7 L, Monocytes % (Manual) 3, Platelet Estimate Normal, RBC Morphology Normal 08/22/17 16:30: PT 24.8 H, INR 2.47 H, APTT 42.2 H 08/22/17 16:30: Sodium 141, Potassium 4.2, Chloride 109 H, Carbon Dioxide 26, Anion Gap 10.2, BUN 19 H, Creatinine 1.08, Estimated Creat Clear 76, Estimated GFR 68, Est GFR ( Amer) 82, Glucose 141 H, Calcium 9.1, Total Bilirubin 0.4, AST 15, ALT 19, Alkaline Phosphatase 129 H, Total Protein 7.1, Albumin 3.4 , Globulin 3.7 H, Albumin/Globulin Ratio 0.9 L 08/22/17 16:30: Acetaminophen 0 L 08/22/17 16:41: Blood Type A Positive, Antibody Screen Negative 08/23/17 05:35: WBC 7.1, RBC 3.77 L, Hgb 9.5 L D, Hct 32.9 L, MCV 87.2, MCH 25.3 L, MCHC 29.0 L, RDW 17.2, Plt Count 221, MPV 7.4, Neut % (Auto) 66.7, Lymph % (Auto) 23.1, [place] % (Auto) 7.7, Eos % (Auto) 1.4, Baso % (Auto) 0.9, Neut # (Auto) 4.7, Lymph # (Auto) 1.6, [place] # (Auto) 0.6, Eos # (Auto) 0.1, Baso # (Auto) 0.1 08/23/17 05:35: PT 28.8 H, INR 2.88 H 08/23/17 05:35: Sodium 142, Potassium 4.9, Chloride 111 H, Carbon Dioxide 29, Anion Gap 6.9, BUN 19 H, Creatinine 1.09, Estimated Creat Clear 72, Estimated GFR 67, Est GFR ( Amer) 81, Glucose 94 D, Calcium 8.4 L 08/23/17 08:01: Hgb 9.8 L, Hct 31.9 L I & O for Last 24 hours: Intake & Output 08/20/17 08/21/17 08/22/17 08/23/17 11:59 11:59 11:59 11:59 Intake Total 823 / 823 Output Total 500 / 500 Balance 323 / 323 Weight 177 lb 11.2 oz - Constitutional no acute distress - *Routine Respiratory Exam Present: CTA bilaterally - *Routine Cardiovascular Exam Present: click - *Routine Abdominal Exam Present: soft. Absent: tenderness Results - Labs 08/23/17 08:01 08/23/17 05:35 Laboratory Results - last 24 hr 08/22/17 16:30: Stool Occult Blood Positive A 08/22/17 16:30: WBC 9.2, RBC 4.44 L, Hgb 11.4 L, Hct 37.9 L, MCV 85.4, MCH 25.6 L, MCHC 30.0 L, RDW 17.2, Plt Count 254, MPV 7.4, Neut % (Auto) 85.7 H, Lymph % (Auto) 10.2, [place] % (Auto) 3.6, Eos % (Auto) 0.2, Baso % (Auto) 0.3, Neut # ( Auto) 7.9 H, Lymph # (Auto) 0.9, [place] # (Auto) 0.3, Eos # (Auto) 0.0, Baso # ( Auto) 0.0, Total Counted 100, Neutrophils % (Manual) 90 H, Lymphocytes % (Manual ) 7 L, Monocytes % (Manual) 3, Platelet Estimate Normal, RBC Morphology Normal 08/22/17 16:30: PT 24.8 H, INR 2.47 H, APTT 42.2 H 08/22/17 16:30: Sodium 141, Potassium 4.2, Chloride 109 H, Carbon Dioxide 26, Anion Gap 10.2, BUN 19 H, Creatinine 1.08, Estimated Creat Clear 76, Estimated GFR 68, Est GFR ( Amer) 82, Glucose 141 H, Calcium 9.1, Total Bilirubin 0.4, AST 15, ALT 19, Alkaline Phosphatase 129 H, Total Protein 7.1, Albumin 3.4 , Globulin 3.7 H, Albumin/Globulin Ratio 0.9 L 08/22/17 16:30: Acetaminophen 0 L 08/22/17 16:41: Blood Type A Positive, Antibody Screen Negative 08/23/17 05:35: WBC 7.1, RBC 3.77 L, Hgb 9.5 L D, Hct 32.9 L, MCV 87.2, MCH 25.3 L, MCHC 29.0 L, RDW 17.2, Plt Count 221, MPV 7.4, Neut % (Auto) 66.7, Lymph % (Auto) 23.1, [place] % (Auto) 7.7, Eos % (Auto) 1.4, Baso % (Auto) 0.9, Neut # (Auto) 4.7, Lymph # (Auto) 1.6, [place] # (Auto) 0.6, Eos # (Auto) 0.1, Baso # (Auto) 0.1 08/23/17 05:35: PT 28.8 H, INR 2.88 H 08/23/17 05:35: Sodium 142, Potassium 4.9, Chloride 111 H, Carbon Dioxide 29, Anion Gap 6.9, BUN 19 H, Creatinine 1.09, Estimated Creat Clear 72, Estimated GFR 67, Est GFR ( Amer) 81, Glucose 94 D, Calcium 8.4 L 08/23/17 08:01: Hgb 9.8 L, Hct 31.9 L Assessment and Plan (1) Anticoagulated on Coumadin Current visit: Yes Status: Acute Category: Medical Code(s): Z51.81 - Encounter for therapeutic drug level monitoring; Z79.01 - assisted (current) use of anticoagulants (2) GI bleeding Current visit: Yes Status: Acute Category: Medical Code(s): K92.2 - Gastrointestinal hemorrhage, unspecified - Assessment and plan all Dx Assessment and Plan for all problems:: Patient has findings consistent with gastrointestinal blood loss. He is on chronic warfarin anticoagulation therapy for mechanical valve. INR today is 2.88. Upper endoscopy may be reasonable in the near future once his coagulation profile is reasonable. I would advocate gastroenterology consultation as he has undergone quite a thorough workup and evaluation with GI over the past several months. At this point I will give him a limited diet and plan for n.p.o. after midnight for potential endoscopic evaluation.
[2017-08-24 05:35] LABS: Basophils % 0.5 % (0.1-2.0); Eosinophils # 0.1 K/mm3 (0.0-0.4); Eosinophils % 1.9 % (0.1-12.0); Hematocrit 31.6 % (42.0-52.0); Hemoglobin 9.4 g/dL (14.1-18.0); Lymphocytes # 1.6 K/mm3 (0.7-4.5); Mean Corpuscular HGB Conc 29.7 g/dL (31.8-35.4); Mean Corpuscular Hemoglobin 25.7 pg (27.0-31.2); Mean Corpuscular Volume 86.7 fl (80-94); Mean Platelet Volume 8.2 fl (7.4-10.4); Monocytes # 0.4 K/mm3 (0.1-1.0); Neutrophils # 3.4 K/mm3 (1.8-7.8); Neutrophils % 61.6 % (37.0-80.0); Platelet Count 211 K/mm3 (142-424); Red Blood Count 3.64 M/mm3 (4.60-6.20); White Blood Count 5.5 K/mm3 (4.8-10.8)
[2017-08-24 05:48] LABS: Albumin Level 2.6 gm/dL (3.4-5.0); Anion Gap 10.1 mEq/L (5-15); Bilirubin,Total 0.3 mg/dL (0.2-1.0); Calcium 8.1 mg/dL (8.5-10.1); Globulin 2.6 gm/dl (1.3-3.2); Potassium 4.1 mmoL/L (3.5-5.1); Total Protein,Serum 5.2 gm/dL (6.4-8.2)
[2017-08-24 09:01] LABS: INR 1.94 (0.9-1.1); Prothrombin Time 19.6 seconds (9.4-11.8)
--- NOTE | 2017-08-24 09:32 | Progress Note ---
[facility] Anesthesia Checklist - Patient Identification Patient Identification: Arm Band - Structural Data Admitted From: Inpatient Planned Operative Procedure/s: egd Consent for Planned Operative Procedure(s) Verified: Yes Verified Documents: Surgical Consent, History and Physical - NPO Status Verified Time NPO: 00:00 - Additional verifications Anesthesia Reactions: No - Airway Assessment C-Spine Mobility Assessed: Yes (mp2) TMJ Mobility Assessed: Yes Dentition: Good Dentition - Neurological Assessment Level of Consciousness: Awake, Alert - Anesthesia Plan Anesthesia Risk discussed: Yes Anesthesia Plan: Verified ASA Class: III Anesthesia Type: MAC [facility] Anesthesia HX I have reviewed the patient's past medical history: Yes Medical History: Reports:: Atrial Fibrillation, Cancer (bladder tumors), Congestive Heart Failure, Coronary Artery Disease, Hyperlipidemia, Hypertension , Myocardial Infarction, Ulcer, Valvular Heart Disease (Metallic aortic valve, on long-term Coumadin) Denies:: Diabetes Mellitus Type 1, Diabetes Mellitus Type 2, MRSA Other Medical History: Reports: Anemia, Arthritis, Cataracts, Other Laterality Cases: Right: Other, Bilateral: Arthroscopy Shoulder, Cataract, Tonsillectomy Other Surgeries: Yes: Colonoscopy, EGD, Hernia Repair, Other Amputation: No Fractures: Yes ((L) arm, (R) shoulder) *Family Hx:: Cancer, Coronary Artery Disease, Diabetes, Heart Attack
--- NOTE | 2017-08-24 09:39 | Procedure Note ---
[facility] Procedure Note Procedure Note:: Upper Endoscopy Procedure Report: Esophagogastroduodenoscopy with cold biopsies Endoscopost: Zion Beckford II, MD Referring Physician: Anthony Henderson M.D. Date of Procedure: August 24, 2016 Equipment: Olympus GIF 180 standard upper endoscope Sedation: MAC sedation Indications: Mr. Gay is a 72-year-old gentleman who presents with hematemesis and some melena. He does have a history of iron deficiency anemia and did undergo EGD in November 2016 which showed atrophic gastritis and some linear reactive gastropathy. The patient had colonoscopy in December 2016 that showed some benign polyps and diverticulosis. He had the video capsule enteroscopy in March 2017 which was fair study since there was dark bile obscuring some of the view of the proximal and distal small bowel. The patient has been on Coumadin and aspirin. His INR has been 3.2. He also takes omeprazole. He has some mild discomfort in the upper abdomen. The patient's most recent hemoglobin and hematocrit were 10 and 30. He began to have hematemesis 2 days ago. Procedure: Prior to the procedure, a history and physical exam was performed, and patient' s medications and allergies were reviewed. The risks, benefits and alternatives of the sedation and procedure were discussed with the patient. All questions were answered and informed consent was obtained. The patient was brought to the procedure room. Patient identification and proposed procedure were verified by the physician and the nurse. The patient was placed in a left lateral decubitus position and the scope was passed under direct vision. Throughout the procedure, the patient's blood pressure, pulse, and oxygen saturations were monitored continuously. The upper GI endoscopy was accomplished without difficulty. The patient tolerated the procedure well. Findings: The scope was passed directly into the upper esophagus and advanced to the third and fourth portion of the duodenum. There was heme and large circumferential ulceration in the third portion of the duodenum with some oozing of blood. The tissue was friable and fungating. The mucosa was edematous and multiple biopsies were obtained. This was located at third and fourth portion of duodenum. The second portion, first portion and duodenal bulb were normal. The scope was withdrawn into the stomach through a normal pylorus. There was evidence of chronic atrophic gastritis of the body and fundus of the stomach. There was no hiatal hernia. The scope was then withdrawn into the esophagus. The remainder of the esophageal mucosa was normal. Impression: 1. Large emigdio-differential ulceration third portion duodenum with irregular margins (benign versus malignant and multiple biopsies obtained) 2. Chronic atrophic gastritis Plan: The patient does have upper GI bleeding from the third portion of the duodenum. There is a large ulceration with friable edematous surrounding duodenal mucosa which was biopsied. I would add misoprostol and continue omeprazole. If this is benign I would continue misoprostol long-term for maintenance. I will discuss the findings with the patient and family.
--- NOTE | 2017-08-24 13:14 | Progress Note ---
Subjective Patient reports: feels better Narrative: Patient states that he feels great. He underwent upper endoscopy by Dr. Beckford this morning and was found to have a circumferential friable somewhat fungating ulcer in the duodenum which showed some evidence of recent bleeding. Did have biopsies performed. Exam Vital signs and Labs for Last 24 Hours: Temp Pulse Resp BP Pulse Ox 98.3 F 47 L 18 139/79 98 08/24/17 10:30 08/24/17 10:30 08/24/17 10:30 08/24/17 10:30 08/24/17 10:30 Laboratory Results - last 24 hr 08/24/17 05:14: WBC 5.5, RBC 3.64 L, Hgb 9.4 L, Hct 31.6 L, MCV 86.7, MCH 25.7 L , MCHC 29.7 L, RDW 17.0, Plt Count 211, MPV 8.2, Neut % (Auto) 61.6, Lymph % ( Auto) 29.0, [place] % (Auto) 7.0, Eos % (Auto) 1.9, Baso % (Auto) 0.5, Neut # (Auto ) 3.4, Lymph # (Auto) 1.6, [place] # (Auto) 0.4, Eos # (Auto) 0.1, Baso # (Auto) 0.0 08/24/17 05:14: Sodium 142, Potassium 4.1, Chloride 110 H, Carbon Dioxide 26, Anion Gap 10.1, BUN 15, Creatinine 1.08, Estimated Creat Clear 73, Estimated GFR 68, Est GFR ( Amer) 82, Glucose 81, Calcium 8.1 L, Total Bilirubin 0.3, AST 11 L D, ALT 15, Alkaline Phosphatase 90, Total Protein 5.2 L D, Albumin 2.6 L, Globulin 2.6, Albumin/Globulin Ratio 1.0 L 08/24/17 05:14: PT 19.6 H, INR 1.94 H I & O for Last 24 hours: Intake & Output 08/22/17 08/23/17 08/24/17 08/25/17 11:59 11:59 11:59 11:59 Intake Total 823 / 823 480 / 480 Output Total 500 / 500 625 / 625 Balance 323 / 323 -145 / -145 Weight 177 lb 11.2 oz - Constitutional no acute distress - *Routine Abdominal Exam Present: soft Progress Note: A&P (1) Anticoagulated on Coumadin Status: Acute Current Visit: Yes (2) GI bleeding Status: Acute Assessment and plan: Medical therapy for ulcer at this time. Current Visit: Yes
[2017-08-25 06:22] LABS: Basophils % 0.6 % (0.1-2.0); Eosinophils # 0.1 K/mm3 (0.0-0.4); Eosinophils % 1.9 % (0.1-12.0); Hematocrit 32.4 % (42.0-52.0); Hemoglobin 9.7 g/dL (14.1-18.0); Lymphocytes # 1.8 K/mm3 (0.7-4.5); Lymphocytes % 34.5 K/mm3 (10-50); Mean Corpuscular HGB Conc 29.9 g/dL (31.8-35.4); Mean Corpuscular Hemoglobin 25.6 pg (27.0-31.2); Mean Corpuscular Volume 85.6 fl (80-94); Mean Platelet Volume 8.8 fl (7.4-10.4); Monocytes # 0.4 K/mm3 (0.1-1.0); Monocytes % 7.2 % (1.7-9.3); Neutrophils % 55.8 % (37.0-80.0); Platelet Count 202 K/mm3 (142-424); Red Blood Count 3.78 M/mm3 (4.60-6.20); Red Cell Distribution Width 16.8 % (11.5-17.5); White Blood Count 5.3 K/mm3 (4.8-10.8)
[2017-08-25 06:55] LABS: Anion Gap 12.4 mEq/L (5-15); Calcium 8.1 mg/dL (8.5-10.1); Potassium 4.4 mmoL/L (3.5-5.1)
--- NOTE | 2017-08-25 07:12 | Progress Note ---
Subjective Narrative: Patient feels pretty well this morning other than some nausea. Tolerating diet. Exam Vital signs and Labs for Last 24 Hours: Temp Pulse Resp BP Pulse Ox 97.9 F 63 18 146/65 96 08/25/17 04:00 08/25/17 04:00 08/25/17 04:00 08/25/17 04:00 08/25/17 04:00 Laboratory Results - last 24 hr 08/24/17 05:14: PT 19.6 H, INR 1.94 H 08/25/17 06:13: WBC 5.3, RBC 3.78 L, Hgb 9.7 L, Hct 32.4 L, MCV 85.6, MCH 25.6 L , MCHC 29.9 L, RDW 16.8, Plt Count 202, MPV 8.8, Neut % (Auto) 55.8, Lymph % ( Auto) 34.5, [place] % (Auto) 7.2, Eos % (Auto) 1.9, Baso % (Auto) 0.6, Neut # (Auto ) 3.0, Lymph # (Auto) 1.8, [place] # (Auto) 0.4, Eos # (Auto) 0.1, Baso # (Auto) 0.0 I & O for Last 24 hours: Intake & Output 08/22/17 08/23/17 08/24/17 08/25/17 11:59 11:59 11:59 11:59 Intake Total 823 / 823 480 / 480 1923 / 1923 Output Total 500 / 500 625 / 625 750 / 750 Balance 323 / 323 -145 / -145 1173 / 1173 Weight 177 lb 11.2 oz Progress Note: A&P (1) Anticoagulated on Coumadin Status: Acute Current Visit: Yes (2) GI bleeding Status: Acute Assessment and plan: Medical treatment per GI recommendations. Current Visit: Yes
[2017-08-25 07:30] VITALS: BP 134/67
--- NOTE | 2017-08-25 07:47 | Discharge Summary ---
General - General Admission date:: 08/22/17 Discharge date: 08/25/17 HPI HPI: Patient is a 72-year-old white male with a history of mechanical valve replacement 18 years ago on chronic warfarin anticoagulation therapy. He does have a history of apparent peptic ulcer disease with bleeding ulcer required airlift to [facility]. More recently he has had findings of iron deficiency anemia. He had undergone upper endoscopy by Dr. Zion Beckford on 11/28/16. He was found to have gastritis and antritis. He was H. pylori positive and biopsies revealed some intestinal metaplasia. He did have a colonoscopy done on 01/05/[address] Zion Beckford and had several polyps removed which were tubular adenomas and was noted to have some diverticulosis and minimal hemorrhoids. He has had a couple of episodes of more appreciable anemia requiring transfusion over the past several months on [address] Beckford had him undergo capsule him to a endoscopy which was reportedly unremarkable for small bowel etiology. Patient states that a couple of days ago in the morning he felt somewhat ill. He was dizzy. He had some minor nausea. He did not go to work. His symptoms transiently improved and then yesterday he had some episodes of dark stool. He developed nausea and had some vomiting what he describes as brownish coffee ground like material. He presented to the emergency department where he was seen and evaluated and admitted for inpatient management for gastrointestinal bleeding. Hospital Course Hospital Course: Patient was admitted as noted above, serial hemoglobins were done, which revealed a slight drop but nothing that required transfusion. INR was appropriately therapeutic. Warfarin is held, 1 dose of vitamin K was given an INR dropped to 1.9 before endoscopy. Endoscopy results are noted, I personally discussed the case with Dr. Beckford. Significant duodenal lesion that had features of worrisome malignant changes but certainly not typical for either ulcer or malignancy. Multiple biopsies were taken. Dr. Beckford recommendations were for misoprostol therapy and the tight control of his INR at exactly 2.5, the low range of therapy for his mechanical valve. Patient did well. No further bleeding either vomiting blood or bright red blood in his stool. Hemoglobin remained stable. This morning patient eating well. Feels a little better. Plan will be to discharge home. I will see him on June 29 with a CBC at that point. Hopefully will have his biopsies back at that point. He will be on misoprostol as noted. Of note, we will have our pharmacy service evaluate with patient to enroll in our Coumadin clinic and adjust warfarin dose for discharge. Objective Vital signs: Temp Pulse Resp BP Pulse Ox 97.8 F 65 18 134/67 97 08/25/17 07:29 08/25/17 07:29 08/25/17 07:29 08/25/17 07:29 08/25/17 07:29 Narrative: Patient is awake, alert. Lungs are clear, heart rate regular with mechanical valve sound. Abdomen soft and nontender. No edema noted. Results Labs on day of discharge: Labs from last 24 hours 08/25/17 08/25/17 08/24/17 06:13 06:13 05:14 WBC 5.3 RBC 3.78 L Hgb 9.7 L Hct 32.4 L MCV 85.6 MCH 25.6 L MCHC 29.9 L RDW 16.8 Plt Count 202 MPV 8.8 Neut % (Auto) 55.8 Lymph % (Auto) 34.5 [place] % (Auto) 7.2 Eos % (Auto) 1.9 Baso % (Auto) 0.6 Neut # (Auto) 3.0 Lymph # (Auto) 1.8 [place] # (Auto) 0.4 Eos # (Auto) 0.1 Baso # (Auto) 0.0 PT 19.6 H INR 1.94 H Sodium 139 Potassium 4.4 Chloride 105 Carbon Dioxide 26 Anion Gap 12.4 BUN 12 Creatinine 1.10 Estimated Creat Clear 71 Estimated GFR 66 Est GFR ( Amer) 80 Glucose 85 Calcium 8.1 L DS: Diagnosis - Discharge Diagnosis (1) Anticoagulated on Coumadin Status: Acute (2) GI bleeding Status: Resolved Discharge Plan - Patient Discharge Instructions ACTIVITY: Limited activity DIET: continue same diet - Follow up Plan Follow up with: Anthony Henderson MD [Primary Care Provider] - 08/29/17 Disposition: Home, Self-Group Home Medications: Home Medications Medication Instructions Recorded Confirmed Type allopurinol 300 mg tablet 300 mg PO DAILY tab 03/12/17 08/23/17 History aspirin 81 mg tablet,delayed 81 mg PO DAILY tab 03/12/17 08/23/17 History release colchicine 0.6 mg capsule 0.6 mg PO DAILYP PRN cap 03/12/17 08/23/17 History hydrocodone 7.5 mg-acetaminophen 1 tab PO Q6H 03/12/17 08/22/17 History 325 mg tablet lisinopril 20 mg tablet 20 mg PO DAILY tab 03/12/17 08/23/17 History omeprazole 20 mg capsule,delayed 20 mg PO DAILY 03/12/17 08/22/17 History release warfarin 5 mg tablet 5 mg PO DAILY 03/12/17 08/22/17 History Montelukast Sodium [Singulair 10mg 10 mg PO PM 08/23/17 08/23/17 History tablet] Prescriptions/Medication Reconciliation: New miSOPROStol [Cytotec 200mcg tablet] 200 mcg PO TID tablet Continue warfarin 5 mg tablet 5 mg PO DAILY hydrocodone 7.5 mg-acetaminophen 325 mg tablet 1 tab PO Q6H lisinopril 20 mg tablet 20 mg PO DAILY tab allopurinol 300 mg tablet 300 mg PO DAILY tab colchicine 0.6 mg capsule 0.6 mg PO DAILYP PRN cap PRN Reason: GOUT FLARES omeprazole 20 mg capsule,delayed release 20 mg PO DAILY aspirin 81 mg tablet,delayed release 81 mg PO DAILY tab Montelukast Sodium [Singulair 10mg tablet] 10 mg PO PM
== END 2017-08-25 10:45 | disposition home or self-care (01) ==
LOC: EDBD → ER 16:02 → 2ND 17:26
PROVIDERS: ADMIT Emergency Medicine; ATTEND Internal Medicine Adolescent Medicine

== ENCOUNTER → 2017-11-07 10:44 | Outpatient (CLI) | payer MEDICARE, OTHER, SELFPAY ==
[2017-11-07 11:45] LABS: Basophils % 0.5 % (0.1-2.0); Eosinophils # 0.1 K/mm3 (0.0-0.4); Eosinophils % 1.3 % (0.1-12.0); Hematocrit 29.8 % (42.0-52.0); Hemoglobin 8.7 g/dL (14.1-18.0); Lymphocytes # 0.9 K/mm3 (0.7-4.5); Lymphocytes % 12.4 K/mm3 (10-50); Mean Corpuscular HGB Conc 29.1 g/dL (31.8-35.4); Mean Corpuscular Hemoglobin 24.4 pg (27.0-31.2); Mean Corpuscular Volume 83.9 fl (80-94); Mean Platelet Volume 6.9 fl (7.4-10.4); Monocytes # 0.4 K/mm3 (0.1-1.0); Monocytes % 5.3 % (1.7-9.3); Neutrophils # 5.7 K/mm3 (1.8-7.8); Neutrophils % 80.5 % (37.0-80.0); Platelet Count 362 K/mm3 (142-424); Red Blood Count 3.56 M/mm3 (4.60-6.20); Red Cell Distribution Width 16.2 % (11.5-17.5)
--- NOTE | 2017-11-07 14:09 | NVE_ITS ---
Venous Exam Indications: 729.5 Pain in limb. Recent cancer dx, recent surgery to remove tumor and lymph nodes. PICC line removed 10/19/17. no coumadin since 09/02/17 Wipple procedure done. Pt had some lovenox while in hospital. IMPRESSIONS 1. There is no evidence of significant reflux. 2. No evidence of deep or superficial vein thrombosis involving the veins of the right upper extremity Right upper extremity venous duplex. Doppler flow study including spectral analysis, color and patel scale imaging. Location: Vascular laboratory. Patient status: Outpatient. CRITICAL FINDINGS - Reported to: Dr. Cook - Read back and verified. - 11/07/17 - 0 - + SVT Tables: Venous flow and imaging: + + + Location Flow properties + + + Right internal jugular Normal phasicity; spontaneous; compressible + + + Right subclavian Normal phasicity; spontaneous; normal augmentation; compressible + + + Right axillary Normal phasicity; spontaneous; normal augmentation; compressible + + + Right brachial Normal phasicity; spontaneous; normal augmentation; compressible + + + Right cephalic Normal phasicity; spontaneous; normal augmentation; compressible + + + Right basilic Normal phasicity; spontaneous; normal augmentation; compressible + + + Right radial Compressible + + + Right ulnar Compressible + + + Left subclavian Normal phasicity; spontaneous; normal augmentation; compressible + + + (Report amended ) Electronically signed by: Johnnie Munoz [id number]
== END ==
PROVIDERS: PCP Internal Medicine Adolescent Medicine; Visit Provider Internal Medicine Adolescent Medicine
DX: D62 Acute posthemorrhagic anemia (principal); I82.A11 Acute embolism and thrombosis of right axillary vein
CPT/HCPCS: 36415; 85025; 93971

== ENCOUNTER → 2017-11-26 10:34 | Outpatient (CLI) | payer MEDICARE, OTHER, SELFPAY ==
[2017-11-26 11:05] LABS: Hematocrit 30.2 % (42.0-52.0); Hemoglobin 8.8 g/dL (14.1-18.0)
== END ==
PROVIDERS: PCP Internal Medicine Adolescent Medicine; Visit Provider Internal Medicine Adolescent Medicine
DX: D50.0 Iron deficiency anemia secondary to blood loss (chronic) (principal)
CPT/HCPCS: 36415; 85014; 85018

== ENCOUNTER → 2018-05-05 11:14 | Outpatient (CLI) | payer MEDICARE, OTHER, SELFPAY ==
[2018-05-05 11:35] LABS: Basophils % 0.4 % (0.1-2.0); Hemoglobin 11.1 g/dL (14.1-18.0); Lymphocytes # 0.4 K/mm3 (0.7-4.5); Lymphocytes % 16.4 % (10-50); Mean Corpuscular HGB Conc 32.7 g/dL (31.8-35.4); Mean Corpuscular Hemoglobin 32.7 pg (27.0-31.2); Mean Corpuscular Volume 99.9 fl (80-94); Monocytes # 0.2 K/mm3 (0.1-1.0); Monocytes % 7.8 % (1.7-9.3); Neutrophils % 74.4 % (37.0-80.0); Platelet Count 114 K/mm3 (142-424); Red Blood Count 3.41 M/mm3 (4.60-6.20); Red Cell Distribution Width 20.4 % (11.5-17.5); White Blood Count 2.7 K/mm3 (4.8-10.8)
[2018-05-05 11:42] LABS: INR 1.23 (0.9-1.1); Prothrombin Time 12.6 seconds (9.4-11.8)
[2018-05-05 13:04] LABS: Erythrocyte Sedimentation Rate 12 mm/hr (0-20)
[2018-05-05 16:10] LABS: Sodium 143 mmol/L (136-145)
[2018-05-05 16:11] LABS: Alanine Aminotransferase 29 U/L (12-78); Albumin Level 2.5 gm/dL (3.4-5.0); Albumin/Globulin Ratio 0.9 (1.1-1.8); Alkaline Phosphatase 117 U/L (46-116); Anion Gap 10.3 mEq/L (5-15); Aspartate Amino Transferase 32 U/L (15-37); Bilirubin,Total 0.4 mg/dL (0.2-1.0); Blood Urea Nitrogen 7 mg/dL (7-18); Calcium 7.6 mg/dL (8.5-10.1); Carbon Dioxide 29 mmol/L (21.0-32.0); Chloride 106 mmol/L (98-107); Creatinine,Serum 0.79 mg/dL (0.70-1.30); Estimated Glomerular Filt Rate 97 ml/min (>60); GFR (African American) 117 ML/MIN (>60); Globulin 2.7 gm/dl (1.3-3.2); Glucose 87 mg/dL (74-106); Total Protein,Serum 5.2 gm/dL (6.4-8.2); Uric Acid 5.2 mg/dL (2.6-7.2)
[2018-05-05 16:16] LABS: Potassium 2.3 mmoL/L (3.5-5.1)
== END ==
PROVIDERS: Visit Provider Internal Medicine Adolescent Medicine
DX: D50.0 Iron deficiency anemia secondary to blood loss (chronic) (principal)
CPT/HCPCS: 36415; 80053; 84550; 85025; 85610; 85651

== ENCOUNTER → 2018-05-07 11:17 | Outpatient (CLI) | payer MEDICARE, OTHER, SELFPAY ==
[2018-05-07 14:29] LABS: Potassium 3.1 mmoL/L (3.5-5.1)
== END ==
PROVIDERS: PCP Internal Medicine Adolescent Medicine; Visit Provider Internal Medicine Adolescent Medicine
DX: E87.6 Hypokalemia (principal)
CPT/HCPCS: 36415; 84132

== ENCOUNTER → 2018-05-11 09:17 | Outpatient (CLI) | payer MEDICARE, OTHER, SELFPAY ==
[2018-05-11 09:53] LABS: INR 1.24 (0.9-1.1); Prothrombin Time 12.7 seconds (9.4-11.8)
[2018-05-11 10:39] LABS: Anion Gap 11.5 mEq/L (5-15); Blood Urea Nitrogen 5 mg/dL (7-18); Calcium 7.7 mg/dL (8.5-10.1); Carbon Dioxide 30 mmol/L (21.0-32.0); Chloride 104 mmol/L (98-107); Creatinine,Serum 0.78 mg/dL (0.70-1.30); Estimated Glomerular Filt Rate 98 ml/min (>60); GFR (African American) 119 ML/MIN (>60); Glucose 82 mg/dL (74-106); Potassium 3.5 mmoL/L (3.5-5.1); Sodium 142 mmol/L (136-145)
== END ==
PROVIDERS: Internal Medicine Cardiovascular Disease; Visit Provider Internal Medicine Adolescent Medicine
DX: E87.6 Hypokalemia (principal); Z51.81 Encounter for therapeutic drug level monitoring; Z79.01 Long term (current) use of anticoagulants
CPT/HCPCS: 36415; 80048; 85610

== ENCOUNTER → 2018-05-17 12:15 | Outpatient (CLI) | payer MEDICARE, OTHER, SELFPAY ==
[2018-05-17 12:42] LABS: Prothrombin Time 84.1 seconds (9.4-11.8)
== END ==
PROVIDERS: Visit Provider Internal Medicine Cardiovascular Disease
DX: Z79.01 Long term (current) use of anticoagulants (principal); Z51.81 Encounter for therapeutic drug level monitoring
CPT/HCPCS: 36415; 85610

== ENCOUNTER → 2018-07-27 09:25 | Outpatient (POV) | payer MEDICARE, OTHER, SELFPAY | PROVIDERS: Visit Provider Otolaryngology | DX: Z00.00 Encounter for general adult medical examination without abnormal findings (principal) ==

== ENCOUNTER → 2018-09-21 12:30 | Outpatient (CLI) | payer MEDICARE, OTHER, SELFPAY ==
[2018-09-21 13:24] LABS: INR 6.43 (0.9-1.1); Prothrombin Time 61.2 seconds (9.4-11.8)
== END ==
PROVIDERS: Visit Provider Internal Medicine Adolescent Medicine
DX: D50.0 Iron deficiency anemia secondary to blood loss (chronic) (principal)
CPT/HCPCS: 36415; 85610

== ENCOUNTER → 2018-12-09 09:52 | Outpatient (CLI) | payer MEDICARE, OTHER, SELFPAY ==
[2018-12-09 10:22] LABS: INR 2.78 (0.9-1.1); Prothrombin Time 27.5 seconds (9.4-11.8)
[2018-12-09 10:29] LABS: Basophils % 0.9 % (0.1-2.0); Eosinophils % 0.7 % (0.1-12.0); Hematocrit 42.2 % (42.0-52.0); Hemoglobin 12.6 g/dL (14.1-18.0); Lymphocytes # 0.5 K/mm3 (0.7-4.5); Lymphocytes % 12.3 % (10-50); Mean Corpuscular HGB Conc 29.9 g/dL (31.8-35.4); Mean Corpuscular Hemoglobin 30.1 pg (27.0-31.2); Mean Corpuscular Volume 100.6 fl (80-94); Mean Platelet Volume 7.5 fl (7.4-10.4); Monocytes # 0.3 K/mm3 (0.1-1.0); Neutrophils # 3.4 K/mm3 (1.8-7.8); Neutrophils % 78.1 % (37.0-80.0); Platelet Count 227 K/mm3 (142-424); White Blood Count 4.3 K/mm3 (4.8-10.8)
== END ==
PROVIDERS: Visit Provider Internal Medicine Adolescent Medicine
DX: D64.9 Anemia, unspecified (principal); D68.318 Other hemorrhagic disorder due to intrinsic circulating anticoagulants, antibodies, or inhibitors; D50.0 Iron deficiency anemia secondary to blood loss (chronic)
CPT/HCPCS: 36415; 85025; 85610

== ENCOUNTER → 2018-12-13 10:00 | Outpatient (POV) | payer MEDICARE, OTHER, SELFPAY | PROVIDERS: PCP Internal Medicine; Visit Provider Nurse Practitioner Family | DX: Z00.00 Encounter for general adult medical examination without abnormal findings (principal) ==

== ENCOUNTER → 2018-12-17 12:21 | Outpatient (CLI) | payer MEDICARE, OTHER, SELFPAY ==
--- NOTE | 2018-12-17 12:27 | CA_ITS ---
APPROVED REPORT Left Upper Extremity Venous Study for DVT. Furniture Decals Inspector: Danette Boucher RT(R) Indications Upper Extremity Edema: Left Risk Factors Malignancy History of Smoking prior whippel Medications Coumadin daily Vein Imaging IJV (L): Normal phasic flow is seen. Normal flow, augmentation and compression is seen. No evidence of Deep Vein Thrombosis. No abnormalities are demonstrated. SCV (L): Normal phasic flow is seen. Normal flow, augmentation and compression is seen. No evidence of Deep Vein Thrombosis. No abnormalities are demonstrated. Axillary (L): Normal phasic flow is seen. Normal flow, augmentation and compression is seen. No evidence of Deep Vein Thrombosis. No abnormalities are demonstrated. Brachial (L): Normal phasic flow is seen. Normal flow, augmentation and compression is seen. No evidence of Deep Vein Thrombosis. No abnormalities are demonstrated. Basilic (L): Compressible Cephalic (L): Compressible Radial (L): Compressible Ulnar (L): Partially Compressible Findings Duplex evaluation of the left upper extremity demonstrates no evidence of DVT. Conclusion Duplex evaluation of the left upper extremity demonstrates no evidence of DVT. Electronically signed by : Johnnie Munoz MD 12/17/2018 17:10:56
== END ==
PROVIDERS: PCP Internal Medicine Adolescent Medicine; Visit Provider Internal Medicine Adolescent Medicine
DX: M79.602 Pain in left arm (principal); R60.0 Localized edema
CPT/HCPCS: 93971

== ENCOUNTER 2018-12-29 12:57 | Outpatient (RCR) | payer MEDICARE, OTHER, SELFPAY ==
--- NOTE | 2018-12-29 13:26 | HMH.PTOPWND ---
Rehab Outpt Wound Evaluation Rehab OP Wound Evaluation Start: 12/29/18 13:18 Freq: Status: Active Protocol: Document 12/29/18 13:21 COLTEN (Rec: 12/29/18 13:26 PHORNE [id number]) Electronically Signed By Andres Toussaint, PT 12/29/18 13:21 Subjective/History History History Pt is 73 yowm who presents with c/o increased B LE edema x several mos with insidious onset of symptoms, his symptoms now are largely resolved. He reports no c/o pain or numbness in the legs. He significant hx including IA with CABG x 3, aortic valve replacement, rev TSA on right, lumbar fusion x 3, and Whipple procedure performed ~ 1 yr ago due to cancer. He underwent multiple rounds of chemo and radiation after his whipple was performed. He had US performed which shows no DVT in the left UE. Subjective Subjective Currently mild 2+ pitting edema. No c/o pain. Lymphedema Eval Classification of Lymphedema Secondary Lymphedema Yes Stemmer's sign Stemmer's Sign no Stage of Lymphedema Lymphedema stages Stage I (Pitting edema, reduces w/ elevation, no fibrosis) Skin Changes Dry Skin Yes Pain Scale Pain Scale (0-10) 0 Radiation Therapy Has received radiation therapy yes Chemo Therapy Has received chemo therapy yes Affected Extremities Areas Affected by Lymphedema/Edema Right Lower Extremity,Left Lower Extremity Manual Lymphatic Drainage Treatment Area MLD Treatment Area Right Lower Extremity,Left Lower Extremity Wound Problems/Impairments Impairments Problems/Impairmments Impaired Walking,Impaired Recreational Activities, Increased Edema,Lymphedema Present,Impaired Self Care/ Self Management Prognosis Rehab Potential Good Clinical Impression Consistent with Diagnosis Yes Short Term Goals Number of Weeks 4 Patient to Understand Lymphedema Yes Treatment and Exercises Decrease Girth Measurments by (cm) Yes: by 5 cm Alf Goals Number of Weeks 8 Patient to be
== END 2018-12-29 12:59 | disposition home or self-care (01) ==
LOC: PT 12:57
PROVIDERS: Visit Provider Internal Medicine Adolescent Medicine
DX: M79.89 Other specified soft tissue disorders (principal); R22.43 Localized swelling, mass and lump, lower limb, bilateral
CPT/HCPCS: 97162; 97760

== ENCOUNTER 2018-12-29 14:00 | Outpatient (RCR) | payer MEDICARE, OTHER, SELFPAY ==
--- NOTE | 2018-12-20 10:25 | [facility].PTOPWND ---
Rehab Outpt Wound Evaluation Rehab OP Wound Evaluation Start: 12/20/18 09:51 Freq: Status: Active Protocol: Document 12/20/18 10:17 COLTEN (Rec: 12/20/18 10:25 PHORSUHAIL [id number]) Electronically Signed By Andres Toussaint, PT 12/20/18 10:17 Subjective/History History History Pt is 73 yowm who presents with c/o increased left UE edema x ~ 1-2 wks with insidious onset of symptoms. The edema has decreased some since it began and is 2+ pitting in nature, mainly from the elbow distally. He reports no c/o pain or numbness on the left UE, but he has very little left shld AROM at baseline. He states, My shoulder has been locked up like that for 7 or 8 years. He significant hx including NC with CABG x 3, aortic valve replacement, rev TSA on right, lumbar fusion x 3, and Whipple procedure performed ~ 1 yr ago due to cancer. He underwent multiple round on chemo and radiation after his whipple was performed. He had US performed which shows no DVT in the left UE. Subjective Subjective Currently no c/o pain, mild tenderness to palpation in the left axillary region. Lymphedema Eval Classification of Lymphedema Secondary Lymphedema Yes Stage of Lymphedema Lymphedema stages Stage I (Pitting edema, reduces w/ elevation, no fibrosis) Skin Changes Dry Skin Yes Discoloration of Skin Yes Other Changes Yes Pain Scale Pain Scale (0-10) 0 Radiation Therapy Has received radiation therapy yes Chemo Therapy Has received chemo therapy yes Affected Extremities Areas Affected by Lymphedema/Edema Left Upper Extremity,Left Axilla Manual Lymphatic Drainage Treatment Area MLD Treatment Area Left Upper Extremity,Left Axilla Wound Problems/Impairments Impairments Problems/Impairmments Palpation Tenderness,Impaired Range of Motion,Increased Edema,Lymphed
== END 2018-12-29 14:05 | disposition home or self-care (01) ==
LOC: PT 14:00
PROVIDERS: PCP Internal Medicine; Visit Provider Internal Medicine Adolescent Medicine
DX: I88.1 Chronic lymphadenitis, except mesenteric (principal); R60.0 Localized edema
CPT/HCPCS: 97140; 97162

== ENCOUNTER → 2018-12-31 13:10 | Outpatient (CLI) | payer MEDICARE, OTHER, SELFPAY ==
[2018-12-31 13:30] LABS: Basophils % 0.5 % (0.1-2.0); Eosinophils # 0.1 K/mm3 (0.0-0.4); Eosinophils % 0.9 % (0.1-12.0); Hematocrit 41.1 % (42.0-52.0); Hemoglobin 12.5 g/dL (14.1-18.0); Lymphocytes # 0.7 K/mm3 (0.7-4.5); Lymphocytes % 14.9 % (10-50); Mean Corpuscular HGB Conc 30.4 g/dL (31.8-35.4); Mean Corpuscular Hemoglobin 31.1 pg (27.0-31.2); Mean Corpuscular Volume 102.5 fl (80-94); Mean Platelet Volume 7.8 fl (7.4-10.4); Monocytes # 0.4 K/mm3 (0.1-1.0); Monocytes % 7.1 % (1.7-9.3); Neutrophils # 3.7 K/mm3 (1.8-7.8); Neutrophils % 76.6 % (37.0-80.0); Platelet Count 187 K/mm3 (142-424); Red Blood Count 4.01 M/mm3 (4.60-6.20); Red Cell Distribution Width 16.8 % (11.5-17.5); White Blood Count 4.9 K/mm3 (4.8-10.8)
[2018-12-31 13:35] LABS: INR 1.28 (0.9-1.1); Prothrombin Time 13.2 seconds (9.4-11.8)
[2018-12-31 15:14] LABS: Alanine Aminotransferase 41 U/L (12-78); Albumin Level 1.6 gm/dL (3.4-5.0); Albumin/Globulin Ratio 0.5 (1.1-1.8); Alkaline Phosphatase 260 U/L (46-116); Anion Gap 6.3 mEq/L (5-15); Aspartate Amino Transferase 39 U/L (15-37); Bilirubin,Total 0.4 mg/dL (0.2-1.0); Blood Urea Nitrogen 13 mg/dL (7-18); Calcium 7.2 mg/dL (8.5-10.1); Carbon Dioxide 32 mmol/L (21.0-32.0); Chloride 105 mmol/L (98-107); Creatinine,Serum 1.11 mg/dL (0.70-1.30); Estimated Glomerular Filt Rate 65 ml/min (>60); Free Thyroxine Index 1.4 ug/dL (5.93-13.13); GFR (African American) 79 ML/MIN (>60); Globulin 3.2 gm/dl (1.3-3.2); Glucose 127 mg/dL (74-106); Potassium 5.3 mmoL/L (3.5-5.1); Sodium 138 mmol/L (136-145); T4 (Thyroxine) 3.8 ug/dl (4.7-13.3); Thyroid Stimulating Hormone 6.28 uIU/ml (0.358-3.740); Total Protein,Serum 4.8 gm/dL (6.4-8.2); Triiodothryronine (T3) Uptake 38 % (31-39)
== END ==
PROVIDERS: Visit Provider Internal Medicine Adolescent Medicine
DX: I35.9 Nonrheumatic aortic valve disorder, unspecified (principal); I25.10 Atherosclerotic heart disease of native coronary artery without angina pectoris; E04.1 Nontoxic single thyroid nodule
CPT/HCPCS: 36415; 80053; 84436; 84443; 84479; 85025; 85610

== ENCOUNTER → 2019-02-22 12:45 | Outpatient (CLI) | payer MEDICARE, OTHER, SELFPAY ==
--- NOTE | 2019-02-22 12:47 | US_ITS ---
PROCEDURE: US THYROID CLINICAL INDICATION: THYROID NODULE Possible thyroid nodule COMPARISON: No exams were available for comparison FINDINGS: The right lobe is 2 x 1 x 0.8 cm which is small. No discrete nodule evident. The left lobe is 1.6 x 1 x 0.7 cm also small with no discrete nodule. Unremarkable appearing isthmus. Thyroid gland is somewhat hyperechoic. IMPRESSION: Small hyperechoic thyroid. No discrete mass evident. Dictated by: Johnnie Munoz MD 02/23/2019 12:47 Electronically signed by Johnnie Munoz MD in [place] 02/23/2019 12:47
== END ==
PROVIDERS: PCP Internal Medicine Adolescent Medicine; Visit Provider Internal Medicine Adolescent Medicine
DX: E04.1 Nontoxic single thyroid nodule (principal)
CPT/HCPCS: 76536

== ENCOUNTER → 2019-03-21 10:09 | Outpatient (POV) | payer MEDICARE, OTHER, SELFPAY | PROVIDERS: Visit Provider Nurse Practitioner Family | DX: Z00.00 Encounter for general adult medical examination without abnormal findings (principal) ==

== ENCOUNTER → 2019-04-01 12:49 | Outpatient (CLI) | payer MEDICARE, OTHER, SELFPAY ==
[2019-04-01 13:23] LABS: Basophils % 0.4 % (0.1-2.0); Eosinophils % 0.7 % (0.1-12.0); Hematocrit 37.4 % (42.0-52.0); Lymphocytes # 0.7 K/mm3 (0.7-4.5); Mean Corpuscular HGB Conc 29.5 g/dL (31.8-35.4); Mean Corpuscular Hemoglobin 29.4 pg (27.0-31.2); Mean Corpuscular Volume 99.8 fl (80-94); Monocytes # 0.4 K/mm3 (0.1-1.0); Monocytes % 9.4 % (1.7-9.3); Neutrophils # 3.2 K/mm3 (1.8-7.8); Neutrophils % 74.5 % (37.0-80.0); Platelet Count 217 K/mm3 (142-424); Red Blood Count 3.75 M/mm3 (4.60-6.20); White Blood Count 4.3 K/mm3 (4.8-10.8)
[2019-04-01 13:32] LABS: INR 6.04 (0.9-1.1)
[2019-04-01 13:33] LABS: Prothrombin Time 57.7 seconds (9.4-11.8)
[2019-04-01 14:18] LABS: Chloride 102 mmol/L (98-107); Sodium 133 mmol/L (136-145)
[2019-04-01 14:19] LABS: Potassium 4.8 mmoL/L (3.5-5.1)
[2019-04-01 14:21] LABS: Alanine Aminotransferase 27 U/L (12-78); Albumin Level 1.8 g/dl (3.5-5.0); Albumin/Globulin Ratio 0.7 (1.1-1.8); Alkaline Phosphatase 190 U/L (38-126); Anion Gap 4.8 mEq/L (5-15); Aspartate Amino Transferase 49 U/L (17-59); Bilirubin,Total 0.2 mg/dl (0.2-1.3); Blood Urea Nitrogen 12 mg/dl (9-20); Calcium 7.2 mg/dl (8.4-10.2); Carbon Dioxide 31 mmol/L (22.0-30.0); Estimated Glomerular Filt Rate 83 ml/min (>60); GFR (African American) 101 ML/MIN (>60); Globulin 2.6 g/dL (1.3-3.2); Glucose 70 mg/dl (74-100); Total Protein,Serum 4.4 g/dl (6.3-8.2)
== END ==
PROVIDERS: Visit Provider Internal Medicine Adolescent Medicine
DX: I35.9 Nonrheumatic aortic valve disorder, unspecified (principal); I25.10 Atherosclerotic heart disease of native coronary artery without angina pectoris; E04.1 Nontoxic single thyroid nodule
CPT/HCPCS: 36415; 80053; 84443; 85025; 85610

== ENCOUNTER → 2019-07-15 08:48 | Outpatient (CLI) | payer MEDICARE, OTHER, SELFPAY ==
[2019-07-15 09:22] LABS: Basophils % 0.2 % (0.1-2.0); Eosinophils % 0.6 % (0.1-12.0); Hematocrit 32.8 % (42.0-52.0); Hemoglobin 10.5 g/dL (14.1-18.0); Lymphocytes # 0.8 K/mm3 (0.7-4.5); Lymphocytes % 11.4 % (10-50); Mean Corpuscular HGB Conc 32.1 g/dL (31.8-35.4); Mean Corpuscular Hemoglobin 31.7 pg (27.0-31.2); Mean Corpuscular Volume 98.8 fl (80-94); Mean Platelet Volume 7.9 fl (7.4-10.4); Monocytes # 0.5 K/mm3 (0.1-1.0); Monocytes % 6.4 % (1.7-9.3); Neutrophils # 5.9 K/mm3 (1.8-7.8); Neutrophils % 81.5 % (37.0-80.0); Platelet Count 294 K/mm3 (142-424); Red Blood Count 3.32 M/mm3 (4.60-6.20); Red Cell Distribution Width 17.1 % (11.5-17.5); White Blood Count 7.2 K/mm3 (4.8-10.8)
[2019-07-15 09:47] LABS: INR 2.11 (0.9-1.1); Prothrombin Time 20.7 seconds (9.4-11.8)
[2019-07-15 10:10] LABS: Chloride 98 mmol/L (98-107); Potassium 4.6 mmoL/L (3.5-5.1); Sodium 131 mmol/L (136-145)
[2019-07-15 10:13] LABS: Alanine Aminotransferase 20 U/L (12-78); Albumin Level 2.2 g/dl (3.5-5.0); Albumin/Globulin Ratio 0.8 (1.1-1.8); Alkaline Phosphatase 170 U/L (38-126); Anion Gap 6.6 mEq/L (5-15); Aspartate Amino Transferase 30 U/L (17-59); Bilirubin,Total 0.8 mg/dl (0.2-1.3); Blood Urea Nitrogen 25 mg/dl (9-20); Carbon Dioxide 31 mmol/L (22.0-30.0); Cholesterol 80 mg/dl (140-200); Estimated Glomerular Filt Rate 73 ml/min (>60); GFR (African American) 89 ML/MIN (>60); Globulin 2.7 g/dL (1.3-3.2); Total Protein,Serum 4.9 g/dl (6.3-8.2); Triglycerides 54 mg/dl (30-150); Uric Acid 7.1 mg/dl (3.5-8.5); VLDL Cholesterol 11 mg/dL (0-40)
[2019-07-15 10:14] LABS: Calcium 7.8 mg/dl (8.4-10.2); Glucose 75 mg/dl (74-100); HDL Cholesterol 40 mg/dl (40-60)
[2019-07-15 10:25] LABS: Direct LDL Cholesterol 39.17 mg/dL (100-129)
[2019-07-15 10:44] LABS: Prostate Specific Ag, Diagnost 9.03 ng/ml (0.0-4.0)
== END ==
PROVIDERS: Visit Provider Internal Medicine Adolescent Medicine
DX: I25.10 Atherosclerotic heart disease of native coronary artery without angina pectoris (principal); M10.9 Gout, unspecified; R97.20 Elevated prostate specific antigen [PSA]; R60.0 Localized edema; R78.89 Finding of other specified substances, not normally found in blood; Z79.01 Long term (current) use of anticoagulants
CPT/HCPCS: 36415; 80053; 80061; 84153; 84550; 85025; 85610

== ENCOUNTER → 2019-08-15 12:08 | Outpatient (CLI) | payer MEDICARE, OTHER, SELFPAY ==
[2019-08-15 13:14] LABS: Basophils % 0.4 % (0.1-2.0); Eosinophils % 0.9 % (0.1-12.0); Hemoglobin 10.8 g/dL (14.1-18.0); Lymphocytes # 0.8 K/mm3 (0.7-4.5); Lymphocytes % 15.6 % (10-50); Mean Corpuscular HGB Conc 32.7 g/dL (31.8-35.4); Mean Corpuscular Hemoglobin 32.6 pg (27.0-31.2); Mean Corpuscular Volume 99.7 fl (80-94); Mean Platelet Volume 6.9 fl (7.4-10.4); Monocytes # 0.4 K/mm3 (0.1-1.0); Monocytes % 7.7 % (1.7-9.3); Neutrophils # 3.8 K/mm3 (1.8-7.8); Neutrophils % 75.6 % (37.0-80.0); Platelet Count 198 K/mm3 (142-424); Red Blood Count 3.31 M/mm3 (4.60-6.20); Red Cell Distribution Width 15.7 % (11.5-17.5); White Blood Count 5.1 K/mm3 (4.8-10.8)
[2019-08-15 13:40] LABS: INR 1.88 (0.9-1.1); Prothrombin Time 18.5 seconds (9.4-11.8)
[2019-08-15 14:37] LABS: Alanine Aminotransferase 25 U/L (12-78); Albumin Level 1.9 g/dl (3.5-5.0); Albumin/Globulin Ratio 0.6 (1.1-1.8); Alkaline Phosphatase 185 U/L (38-126); Anion Gap 6.6 mEq/L (5-15); Aspartate Amino Transferase 40 U/L (17-59); Bilirubin,Total 0.4 mg/dl (0.2-1.3); Blood Urea Nitrogen 17 mg/dl (9-20); Calcium 7.3 mg/dl (8.4-10.2); Carbon Dioxide 29 mmol/L (22.0-30.0); Chloride 100 mmol/L (98-107); Estimated Glomerular Filt Rate 73 ml/min (>60); GFR (African American) 89 ML/MIN (>60); Glucose 81 mg/dl (74-100); Potassium 4.6 mmoL/L (3.5-5.1); Sodium 131 mmol/L (136-145); Total Protein,Serum 4.9 g/dl (6.3-8.2)
== END ==
PROVIDERS: Visit Provider Internal Medicine Adolescent Medicine
DX: I50.30 Unspecified diastolic (congestive) heart failure (principal); I35.9 Nonrheumatic aortic valve disorder, unspecified
CPT/HCPCS: 36415; 80053; 85025; 85610

== ENCOUNTER → 2019-10-12 13:34 | Outpatient (CLI) | payer MEDICARE, OTHER, SELFPAY ==
[2019-10-12 14:26] LABS: Basophils % 0.3 % (0.1-2.0); Eosinophils % 0.5 % (0.1-12.0); Hematocrit 37.8 % (42.0-52.0); Hemoglobin 12.6 g/dL (14.1-18.0); Lymphocytes # 0.9 K/mm3 (0.7-4.5); Lymphocytes % 12.8 % (10-50); Mean Corpuscular HGB Conc 33.3 g/dL (31.8-35.4); Mean Corpuscular Hemoglobin 32.3 pg (27.0-31.2); Mean Corpuscular Volume 96.9 fl (80-94); Mean Platelet Volume 6.9 fl (7.4-10.4); Monocytes # 0.5 K/mm3 (0.1-1.0); Monocytes % 6.9 % (1.7-9.3); Neutrophils # 5.6 K/mm3 (1.8-7.8); Neutrophils % 79.5 % (37.0-80.0); Platelet Count 239 K/mm3 (142-424); White Blood Count 7.1 K/mm3 (4.8-10.8)
[2019-10-12 15:23] LABS: Alanine Aminotransferase 21 U/L (12-78); Albumin Level 1.9 g/dl (3.5-5.0); Albumin/Globulin Ratio 0.6 (1.1-1.8); Alkaline Phosphatase 233 U/L (38-126); Anion Gap 5.2 mEq/L (5-15); Aspartate Amino Transferase 35 U/L (17-59); Bilirubin,Total 0.3 mg/dl (0.2-1.3); Blood Urea Nitrogen 17 mg/dl (9-20); Calcium 7.6 mg/dl (8.4-10.2); Carbon Dioxide 33 mmol/L (22.0-30.0); Chloride 99 mmol/L (98-107); Estimated Glomerular Filt Rate 83 ml/min (>60); GFR (African American) 100 ML/MIN (>60); Globulin 3.1 g/dL (1.3-3.2); Glucose 93 mg/dl (74-100); Potassium 4.2 mmoL/L (3.5-5.1); Sodium 133 mmol/L (136-145)
[2019-10-12 15:42] LABS: 25-OH Vitamin D, Total < 12.8 ng/mL (30-100)
[2019-10-12 16:12] LABS: Vitamin B12 414 pg/mL (239-931)
[2019-10-19 16:32] LABS: Vitamin E Alpha Tocopherol 5.7 mg/L (9.0-29.0)
[2019-10-20 08:38] LABS: Vitamin B6 1.2 ug/L (5.3-46.7)
[2019-10-20 08:39] LABS: Vitamin E Gamma Tocopherol 0.9 mg/L (0.5-4.9)
== END ==
PROVIDERS: Visit Provider Internal Medicine Adolescent Medicine
DX: I25.10 Atherosclerotic heart disease of native coronary artery without angina pectoris (principal); K12.1 Other forms of stomatitis; E55.9 Vitamin D deficiency, unspecified
CPT/HCPCS: 36415; 80053; 82180; 82306; 82607; 84207; 84425; 84446; 85025

== ENCOUNTER → 2019-10-20 14:56 | Outpatient (CLI) | payer MEDICARE, OTHER, SELFPAY | PROVIDERS: Visit Provider Internal Medicine Adolescent Medicine | DX: D53.2 Scorbutic anemia (principal); Z79.01 Long term (current) use of anticoagulants | CPT/HCPCS: 36415; 82180 ==

== ENCOUNTER → 2019-10-26 13:03 | Outpatient (CLI) | payer MEDICARE, OTHER, SELFPAY | PROVIDERS: Visit Provider Internal Medicine Adolescent Medicine | DX: D53.2 Scorbutic anemia (principal) | CPT/HCPCS: 36415; 82180 ==